=== PATIENT | male | born 1955 | race Caucasian/White ===

== ENCOUNTER 2021-08-05 09:01 | Emergency (ER) | payer MEDICAID, SELFPAY ==
[2021-08-05] VITALS (13 sets, daily range): BP systolic 119–154; BP diastolic 55–90; PULSE 68–88; RESP 14–20; TEMP 36.3–36.9; O2SAT 90–97; BMI 19.6
--- NOTE | 2021-08-05 09:16 | EDS_ITS ---
HPI <Dr. 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 Patient with abnormal behavior at [facility]. Patient apparently try to break into someone's home last evening and he was picked up by [place] police and was arrested. Ultimately was discharged from skilled nursing. Patient then was picked up by [place] police and taken to an [facility] after helping him take out some money. Patient brought in by police today for bizarre behavior and concern for his wellbeing. Patient is a very poor historian and has flight of ideas. Patient paranoid. Denies suicidal or homicidal ideation. Patient does admit to hallucinations but will not say what he sees. Patient does not know what medications he takes. [facility] <Dr. Estefany Feliciano, DO - Last Filed: 08/05/21 15:39> [facility] Medical History Anxiety COPD (chronic obstructive pulmonary disease) Depression Smoker Home Medications etodolac 300 mg PO TIDCM #30 capsule 02/18/14 [Rx Last Taken Unknown] Allergy/AdvReac Type Severity Reaction Status Date / Time acetaminophen [From Vicodin] AdvReac Nausea Verified 08/05/21 09:05 hydrocodone bitartrate AdvReac Nausea Verified 08/05/21 09:05 [From Vicodin] Surgical History (Updated 08/05/21 @ 09:39 by Yen Sinclair) Stented coronary artery Social History Smoking Status: Current every day smoker tobacco type: cigarettes ROS <Dr. Estefany Feliciano, DO - Last Filed: 08/05/21 15:39> ROS ED Constitutional Constitutional ED: Reports systems reviewed and no addt'l complaints, except as documented; Denies body ache(s), change in weight or chills Eyes Eyes: Denies acute decrease in peripheral vision, change in vision, double vision or loss of vision ENT ENT ED: Reports none; Denies ear pain, lip swelling, loss taste/smell, neck pain, otalgia or sore throat Cardiovascular Cardiovascular: Reports none; Denies abdominal pain, chest pain with activity, leg edema, lightheadedness, palpitations, rapid heart rate or syncope Respiratory/Chest Respiratory/Chest: Reports none; Denies change in mental status, dry cough, dyspnea, hemoptysis, shortness of breath at rest or shortness of breath with exertion Gastrointestinal Gastrointestinal: Reports none; Denies abdominal pain, change in stool character, diarrhea, hematemesis, hematochezia, melena, rectal bleeding or vomiting Genitourinary Genitourinary ED: Reports none; Denies abdominal discomfort, anuria, dysuria, genital pain or polyuria Musculoskeletal Musculoskeletal: Reports none; Denies arthralgias, back pain, difficulty walking, extremity pain, muscle weakness or myalgias Integumentary Reports none; Denies abscess or rash Neurologic Neurologic: Reports none; Denies abnormal gait, confusion, focal weakness, frequent falls, headache(s), loss of vision, numbness, paresthesias, radicular pain, vertigo or weakness Psychiatric Psychiatric: Reports systems reviewed and no addt'l complaints, except as documented, none and other Details: Abnormal behavior, hallucinations, paranoia ; Denies behavioral changes, confusion, difficulty concentrating, hallucinations, suicidal ideation, tactile hallucinations or visual hallucinations Endocrine Endocrinology: Denies none, cold intolerance, excessive sweating, fatigue or heat intolerance Hematologic/Lymphatic Hematologic/Lymphatic: Reports none; Denies anemia, easy bleeding or easy bruising Allergic/Immunologic Allergic/Immunologic ED: Denies as per HPI, none, lip swelling, mouth swelling, throat swelling, tongue swelling or hives EXAM <Dr. Estefany Feliciano, DO - Last Filed: 08/05/21 15:39> Physical Exam Const Vital Signs: 08/05/21 09:02 08/05/21 09:32 08/05/21 10:18 Temperature 98.4 F Temperature Source Temporal Pulse Rate 84 68 Respiratory Rate 16 14 Blood Pressure 154/85 H 139/67 H Blood Pressure Mean 108 91 Pulse Ox 97 97 97 Oxygen Delivery Method Room Air Room Air Room Air 08/05/21 11:00 08/05/21 12:00 08/05/21 14:00 Temperature Temperature Source Pulse Rate 75 76 Respiratory Rate 16 Blood Pressure 119/75 152/90 H 149/85 H Blood Pressure Mean 89 110 106 Pulse Ox 93 93 94 Oxygen Delivery Method Room Air Room Air Room Air 08/05/21 15:00 08/05/21 16:00 08/05/21 17:00 Temperature Temperature Source Pulse Rate Respiratory Rate 20 H Blood Pressure 146/73 H 127/80 H 147/69 H Blood Pressure Mean 97 95 95 Pulse Ox 90 93 96 Oxygen Delivery Method Room Air Room Air Room Air 08/05/21 18:00 08/05/21 20:13 08/05/21 21:30 Temperature 97.4 F L Temperature Source Temporal Pulse Rate 88 Respiratory Rate 17 17 Blood Pressure 134/55 H 120/74 Blood Pressure Mean 81 89 Pulse Ox 93 96 Oxygen Delivery Method Room Air Room Air 08/05/21 22:38 Temperature Temperature Source Pulse Rate Respiratory Rate 17 Blood Pressure Blood Pressure Mean Pulse Ox Oxygen Delivery Method Positive well nourished and well developed General Appearance ED: well developed and NAD HEENT Reports TM's clear and moist mucous membranes normocephalic and atraumatic; Negative for trauma or tenderness Tympanic Membrane ED: Yes TM's clear Eyes PERRL and EOMs intact bilaterally General Eye ED: Negative for pale conjunctiva or scleral icterus Neck no lymphadenopathy, supple and no JVD General: Negative for tenderness Chest Wall inspection of chest normal and palpation of chest normal Chest: Negative for tenderness Resp normal respiratory effort and clear to auscultation bilaterally Effort and Inspection: Negative for respiratory distress or pain with movement Auscultation: Negative for rhonchi, wheezes or diminished lung sounds Cardio regular rate, regular rhythm, S1 normal heart sound, S2 normal heart sound and no murmurs Peripheral Pulses: pulses 2+ throughout GI normal to inspection, nondistended, normoactive bowel sounds, soft to palpation, non-tender, non-distended and no masses Back/Spine no CVA tenderness and no thoracic nor lumbar tenderness Extremity normal to inspection General Extremety ED: Negative for edema General Extremity: Negative for edema Neuro oriented x3, CN's II-XII intact bilaterally, no sensory deficits noted and gait normal Sensorium / Orientation: awake, alert, oriented to person, oriented to place and oriented to time Motor Exam: strength 5/5 throughout and strength abnormal Psych mental status grossly normal Activity / Motor Behavior: psychomotor agitation and disorganized Speech: incoherent and pressured Mood & Affect: labile affect Thought Process: loose associations, tangential and racing thoughts Thought Content: delusion(s) and hallucination(s) Skin no rashes or lesions noted and no wounds <Dr. Amandeep Lyle MD - Last Filed: 08/06/21 00:02> Physical Exam Const Vital Signs: 08/05/21 09:02 08/05/21 09:32 08/05/21 10:18 Temperature 98.4 F Temperature Source Temporal Pulse Rate 84 68 Respiratory Rate 16 14 Blood Pressure 154/85 H 139/67 H Blood Pressure Mean 108 91 Pulse Ox 97 97 97 Oxygen Delivery Method Room Air Room Air Room Air 08/05/21 11:00 08/05/21 12:00 08/05/21 14:00 Temperature Temperature Source Pulse Rate 75 76 Respiratory Rate 16 Blood Pressure 119/75 152/90 H 149/85 H Blood Pressure Mean 89 110 106 Pulse Ox 93 93 94 Oxygen Delivery Method Room Air Room Air Room Air 08/05/21 15:00 08/05/21 16:00 08/05/21 17:00 Temperature Temperature Source Pulse Rate Respiratory Rate 20 H Blood Pressure 146/73 H 127/80 H 147/69 H Blood Pressure Mean 97 95 95 Pulse Ox 90 93 96 Oxygen Delivery Method Room Air Room Air Room Air 08/05/21 18:00 08/05/21 20:13 08/05/21 21:30 Temperature 97.4 F L Temperature Source Temporal Pulse Rate 88 Respiratory Rate 17 17 Blood Pressure 134/55 H 120/74 Blood Pressure Mean 81 89 Pulse Ox 93 96 Oxygen Delivery Method Room Air Room Air 08/05/21 22:38 Temperature Temperature Source Pulse Rate Respiratory Rate 17 Blood Pressure Blood Pressure Mean Pulse Ox Oxygen Delivery Method MDM <Dr. Estefany Feliciano DO - Last Filed: 08/05/21 15:39> MDM MDM Narrative Medical decision making narrative: Patient will be evaluated by crisis. Care of patient turned over to evening physician awaiting evaluation by crisis and final disposition. Lab Data Attestation: I reviewed the patient's lab results. Labs: Laboratory Results - last 24 hr 08/05/21 08/05/21 08/05/21 09:21 09:35 09:35 WBC 9.0 RBC 4.37 L Hgb 13.0 Hct 39.1 L MCV 89.5 MCH 29.7 MCHC 33.2 RDW Std Deviation 44.9 H RDW Coeff of Fanta 13.6 Plt Count 227 MPV 9.9 Immature Gran % (Auto) 0.200 Neut % (Auto) 82.2 H Lymph % (Auto) 8.5 L Carl[place] % (Auto) 7.9 Eos % (Auto) 0.9 Baso % (Auto) 0.3 Absolute Neuts (auto) 7.4 Absolute Lymphs (auto) 0.77 L Nucleated RBC % 0 Sodium 142 Potassium 3.7 Chloride 107 Carbon Dioxide 27.0 Anion Gap 8 BUN 34 H Creatinine 1.01 Estim Creat Clear Calc 57.22 Est GFR (MDRD) Af Amer 95 Est GFR (MDRD) Non-Af 78 BUN/Creatinine Ratio 33.7 H Glucose 104 Calcium 9.4 Urine Opiates Screen NEGATIVE Urine Methadone Screen NEGATIVE Ur Barbiturates Screen NEGATIVE Ur Phencyclidine Scrn NEGATIVE Ur Amphetamines Screen POSITIVE H U Methamphetamin-MDMA POSITIVE H U Benzodiazepines Scrn NEGATIVE Urine Cocaine Screen NEGATIVE U Cannabinoids Screen NEGATIVE Ur Drug Screen Comment Ethyl Alcohol 08/05/21 09:35 WBC RBC Hgb Hct MCV MCH MCHC RDW Std Deviation RDW Coeff of Fanta Plt Count MPV Immature Gran % (Auto) Neut % (Auto) Lymph % (Auto) Carlisle % (Auto) Eos % (Auto) Baso % (Auto) Absolute Neuts (auto) Absolute Lymphs (auto) Nucleated RBC % Sodium Potassium Chloride Carbon Dioxide Anion Gap BUN Creatinine Estim Creat Clear Calc Est GFR (MDRD) Af Amer Est GFR (MDRD) Non-Af BUN/Creatinine Ratio Glucose Calcium Urine Opiates Screen Urine Methadone Screen Ur Barbiturates Screen Ur Phencyclidine Scrn Ur Amphetamines Screen U Methamphetamin-MDMA U Benzodiazepines Scrn Urine Cocaine Screen U Cannabinoids Screen Ur Drug Screen Comment Ethyl Alcohol < 3.0 <Dr. Amandeep Lyle MD - Last Filed: 08/06/21 00:02> MDM MDM Narrative Medical decision making narrative: Patient has been seen by the licensed surveyor from the crisis center. She is working on disposition to psychiatric facility. As of midAugust 06 disposition is not known. Lab Data Labs: Laboratory Results - last 24 hr 08/05/21 08/05/21 08/05/21 09:21 09:35 09:35 WBC 9.0 RBC 4.37 L Hgb 13.0 Hct 39.1 L MCV 89.5 MCH 29.7 MCHC 33.2 RDW Std Deviation 44.9 H RDW Coeff of Fanta 13.6 Plt Count 227 MPV 9.9 Immature Gran % (Auto) 0.200 Neut % (Auto) 82.2 H Lymph % (Auto) 8.5 L [place] % (Auto) 7.9 Eos % (Auto) 0.9 Baso % (Auto) 0.3 Absolute Neuts (auto) 7.4 Absolute Lymphs (auto) 0.77 L Nucleated RBC % 0 Sodium 142 Potassium 3.7 Chloride 107 Carbon Dioxide 27.0 Anion Gap 8 BUN 34 H Creatinine 1.01 Estim Creat Clear Calc 57.22 Est GFR (MDRD) Af Amer 95 Est GFR (MDRD) Non-Af 78 BUN/Creatinine Ratio 33.7 H Glucose 104 Calcium 9.4 Urine Opiates Screen NEGATIVE Urine Methadone Screen NEGATIVE Ur Barbiturates Screen NEGATIVE Ur Phencyclidine Scrn NEGATIVE Ur Amphetamines Screen POSITIVE H U Methamphetamin-MDMA POSITIVE H U Benzodiazepines Scrn NEGATIVE Urine Cocaine Screen NEGATIVE U Cannabinoids Screen NEGATIVE Ur Drug Screen Comment Ethyl Alcohol 08/05/21 09:35 WBC RBC Hgb Hct MCV MCH MCHC RDW Std Deviation RDW Coeff of Fanta Plt Count MPV Immature Gran % (Auto) Neut % (Auto) Lymph % (Auto) Carl[place] % (Auto) Eos % (Auto) Baso % (Auto) Absolute Neuts (auto) Absolute Lymphs (auto) Nucleated RBC % Sodium Potassium Chloride Carbon Dioxide Anion Gap BUN Creatinine Estim Creat Clear Calc Est GFR (MDRD) Af Amer Est GFR (MDRD) Non-Af BUN/Creatinine Ratio Glucose Calcium Urine Opiates Screen Urine Methadone Screen Ur Barbiturates Screen Ur Phencyclidine Scrn Ur Amphetamines Screen U Methamphetamin-MDMA U Benzodiazepines Scrn Urine Cocaine Screen U Cannabinoids Screen Ur Drug Screen Comment Ethyl Alcohol < 3.0 Discharge Plan Triage Chief Complaint: Mental Health ED Provider: Estefany Feliciano Dx/Rx/DC Orders Clinical Impression: Psychosis, Acute paranoia Prescriptions: No Action etodolac 300 MG capsule 300 mg PO TIDCM Qty: 30 RF: 0 Primary Care Provider: Care Physician,No Primary Referrals: Care Physician,No Primary [Primary Care Provider] -
[2021-08-05] MEDS: Haloperidol Lactate 5 MG/ML Vial IM (09:31)
[2021-08-05] MEDS: LORazepam 2 MG/ML Syringe IM (09:31)
[2021-08-05 09:46] LABS: Absolute Lymphocyte Count 0.77 X10^3/uL (0.83-4.51); Absolute Neutrophil Count 7.4 X10^3/uL (2.0-7.7); Basophil# 0.03 X10^3/uL; Basophil% 0.3 % (0-1); Eosinophil# 0.08 X10^3/uL; Eosinophils% 0.9 % (0-5); Hematocrit 39.1 % (40-54); Lymphocyte # 0.77 X10^3/ul (0.83-4.51); Lymphocyte % 8.5 % (19-41); Mean Corp Hgb Conc 33.2 g/dL (32-36); Mean Corpuscular Hgb 29.7 pg (27.0-32.0); Mean Corpuscular Volume 89.5 fL (80-94); Mean Platelet Vol. 9.9 fl (6.2-12.0); Monocyte# 0.71 X10^3/uL; Monocyte% 7.9 % (0-10); NRBC Flagged by Analyzer 0 % (0-5); Neutrophil # 7.43 X10^3/uL (2.7-7.7); Neutrophil % 82.2 % (47-70); Platelet Count 227 K/mm3 (150-450); RBC Distribution Width CV 13.6 % (11.6-14.6); RBC Distribution Width SD 44.9 fl (35.1-43.9); Red Blood Count 4.37 M/mm3 (4.6-6.2)
[2021-08-05 09:58] LABS: Anion Gap 8 (5-15); BUN 34 mg/dL (7-18); BUN/Creat Ratio 33.7 RATIO (10-20); Calcium,Total 9.4 mg/dL (8.5-10.1); Chloride 107 mmol/L (98-107); Creatinine, Serum 1.01 mg/dL (0.70-1.30); EST Glomerular Filtration Rate 78 mL/min (>60); Est Glom Filt Rate - Afr Amer 95 mL/min (>60); Estimated Creatinine Clearance 57.22 ml/min; Glucose 104 mg/dL (74-106); Potassium 3.7 mmol/L (3.5-5.1); Sodium Level 142 mmol/L (136-145)
[2021-08-05 10:00] LABS: Amphetamine Urine VISTA POSITIVE (<1000 ng/mL); Barbiturate Urine VISTA NEGATIVE (< 200 ng/mL); Benzodiazepine Urine VISTA NEGATIVE (< 200 ng/mL); Cocaine Urine VISTA NEGATIVE (< 300 ng/mL); Ecstacy Urine VISTA POSITIVE (< 500 ng/mL); Methadone Urine VISTA NEGATIVE (< 300 ng/mL); PCP Urine VISTA NEGATIVE (< 25 ng/mL); THC Urine VISTA NEGATIVE (< 50 ng/mL); Vista UDS pH Range 5
[2021-08-05 10:05] LABS: Alcohol, Blood (Medical)-Serum < 3.0 mg/dL
--- NOTE | 2021-08-05 11:11 | NURSING ---
FAXED EVERYTHING TO [facility]
[2021-08-06 01:00] VITALS: BP 127/58; PULSE 74; RESP 16; TEMP 36.5; O2SAT 92
[2021-08-06 05:19] VITALS: BP 134/72; PULSE 76; RESP 17; O2SAT 98
--- NOTE | 2021-08-06 05:21 | ED.RN ---
CALLED THE [facility] MULTIPLE TIMES FOR A UPDATE, BEFORE AURELIO LEFT SHE SAID THAT THEY WAS PENDING AT [facility].. I HAVE TRIED CALLING [facility] AT 1:54 AM, 3:28AM AND ALSO 5:17AM FOR A UPDATE. THE FIRST TIME I CALLED THEY SAID WE WILL PAGE HER, THE SECOND TIME I CALLED [facility] WITH A PATIENT, THIRD TIME I CALLED THEY WILL PAGE HER. CHARGE NURSE IS AWARE.
[2021-08-06 05:56] VITALS: BP 129/62; PULSE 74; RESP 16; TEMP 36.8; O2SAT 96
== END 2021-08-06 07:09 ==
PROVIDERS: Emergency Provider Emergency Medicine
DX: F22 Delusional disorders (principal); F29 Unspecified psychosis not due to a substance or known physiological condition; F17.210 Nicotine dependence, cigarettes, uncomplicated
CPT/HCPCS: 36415; 80048; 80307; 82077; 85025; 87426; 96372; 99285

== ENCOUNTER 2021-10-15 12:27 | Emergency (ER) | payer MEDICAID, SELFPAY ==
[2021-10-15 12:41] VITALS: BP 115/67; PULSE 88; RESP 16; TEMP 37.6; O2SAT 96
[2021-10-15 13:36] LABS: Mucous, Urine 0 SEEN /hpf (<or=2+); Squamous Epithelial Cells - UA 0 SEEN /hpf (0-5)
[2021-10-15 13:46] LABS: Color, Urine Yellow (Yellow); Glucose, Dipstick Normal (Normal); Ketone-Dipstick 15 mg/dl (Negative); Leukocyte Esterase-Dipstick 100 /ul (Negative); Nitrite-Dipstick Positive (Negative); Occult Blood-Urine 150 /ul (Negative); Protein-Dipstick 30 mg/dl (Negative); Urine Bilirubin Dipstick Negative (Negative); Urine Clarity Clear (Clear); Urine Urobilinogen 8 mg/dl (Normal)
--- NOTE | 2021-10-15 13:49 | ED.RN ---
pt reports he is going outside awhile. pt informed that he has to be present in waiting room when called to be taken back to a room.
[2021-10-15 14:19] LABS: Bacteria 1+ /hpf (None Seen); Red Blood Cells-Urine 0-5 SEEN /hpf (0-5); White Blood Cells 5-10 SEEN /hpf (0-5)
--- NOTE | 2021-10-15 15:34 | ED.RN ---
PT CALLED TO GO BACK FROM [facility]. PT NOT PRESENT IN WAITING ROOM. PT LWBS AT 1530.
== END 2021-10-15 15:34 | disposition left against medical advice (07) ==
LOC: ED 15:37
DX: Z53.21 Procedure and treatment not carried out due to patient leaving prior to being seen by health care provider (principal)
CPT/HCPCS: 81001

== ENCOUNTER → 2021-10-24 | Outpatient (CLI) | payer MEDICAID, SELFPAY ==
[2021-10-24 15:56] LABS: Absolute Lymphocyte Count 1.11 X10^3/uL (0.83-4.51); Absolute Neutrophil Count 5.7 X10^3/uL (2.0-7.7); Basophil# 0.02 X10^3/uL; Basophil% 0.3 % (0-1); Eosinophil# 0.27 X10^3/uL; Eosinophils% 3.5 % (0-5); Hematocrit 37.3 % (40-54); Hemoglobin 11.8 g/dL (13.0-16.5); Lymphocyte # 1.11 X10^3/ul (0.83-4.51); Lymphocyte % 14.6 % (19-41); Mean Corp Hgb Conc 31.6 g/dL (32-36); Mean Corpuscular Hgb 29.6 pg (27.0-32.0); Mean Corpuscular Volume 93.5 fL (80-94); Mean Platelet Vol. 9.8 fl (6.2-12.0); Monocyte# 0.39 X10^3/uL; Monocyte% 5.1 % (0-10); NRBC Flagged by Analyzer 0 % (0-5); Neutrophil # 5.68 X10^3/uL (2.7-7.7); Neutrophil % 74.5 % (47-70); Platelet Count 364 K/mm3 (150-450); RBC Distribution Width CV 13.4 % (11.6-14.6); RBC Distribution Width SD 45.9 fl (35.1-43.9); Red Blood Count 3.99 M/mm3 (4.6-6.2); White Blood Count 7.6 K/mm3 (4.4-11.0)
== END | disposition home or self-care (01) ==
LOC: LABSPEC 15:20
DX: A41.51 Sepsis due to Escherichia coli [E. coli] (principal)
CPT/HCPCS: 85025

== ENCOUNTER → 2021-10-30 14:34 | Outpatient (CLI) | payer MEDICAID, SELFPAY ==
[2021-10-30 15:33] LABS: Absolute Lymphocyte Count 1.13 X10^3/uL (0.83-4.51); Absolute Neutrophil Count 4.6 X10^3/uL (2.0-7.7); Basophil# 0.04 X10^3/uL; Basophil% 0.6 % (0-1); Eosinophil# 0.25 X10^3/uL; Eosinophils% 3.9 % (0-5); Hematocrit 38.8 % (40-54); Hemoglobin 12.7 g/dL (13.0-16.5); Lymphocyte # 1.13 X10^3/ul (0.83-4.51); Lymphocyte % 17.7 % (19-41); Mean Corp Hgb Conc 32.7 g/dL (32-36); Mean Corpuscular Hgb 29.8 pg (27.0-32.0); Mean Corpuscular Volume 91.1 fL (80-94); Mean Platelet Vol. 9.9 fl (6.2-12.0); Monocyte# 0.37 X10^3/uL; Monocyte% 5.8 % (0-10); NRBC Flagged by Analyzer 0 % (0-5); Neutrophil # 4.58 X10^3/uL (2.7-7.7); Neutrophil % 71.7 % (47-70); Platelet Count 372 K/mm3 (150-450); RBC Distribution Width CV 13.4 % (11.6-14.6); RBC Distribution Width SD 45.1 fl (35.1-43.9); Red Blood Count 4.26 M/mm3 (4.6-6.2); White Blood Count 6.4 K/mm3 (4.4-11.0)
[2021-10-30 15:45] LABS: ALB/GLOB Ratio 1.1 RATIO (0.9-2.4); AST(SGOT) 19 U/L (15-37); Alanine Aminotransfer ALT/SGPT 22 U/L (16-61); Albumin, Serum 3.4 g/dL (3.2-5.0); Alkaline Phosphatase 116 U/L (45-117); Anion Gap 4 (5-15); BUN 12 mg/dL (7-18); BUN/Creat Ratio 13.5 RATIO (10-20); Calcium,Total 9.2 mg/dL (8.5-10.1); Chloride 110 mmol/L (98-107); Creatinine, Serum 0.89 mg/dL (0.70-1.30); EST Glomerular Filtration Rate 91 mL/min (>60); Est Glom Filt Rate - Afr Amer 110 mL/min (>60); Globulin 3.1 g/dL (2.2-4.2); Glucose 77 mg/dL (74-106); Potassium 4.2 mmol/L (3.5-5.1); Protein, Total 6.5 g/dL (6.4-8.2); Sodium Level 143 mmol/L (136-145)
== END ==
DX: R78.81 Bacteremia (principal)
CPT/HCPCS: 80053; 85025

== ENCOUNTER 2021-11-13 14:15 | Outpatient (CLI) | payer MEDICAID, SELFPAY ==
[2021-11-13 15:57] LABS: Absolute Lymphocyte Count 1.03 X10^3/uL (0.83-4.51); Absolute Neutrophil Count 3.3 X10^3/uL (2.0-7.7); Basophil# 0.02 X10^3/uL; Basophil% 0.4 % (0-1); Eosinophil# 0.42 X10^3/uL; Eosinophils% 8.2 % (0-5); Hematocrit 38.8 % (40-54); Hemoglobin 12.9 g/dL (13.0-16.5); Lymphocyte # 1.03 X10^3/ul (0.83-4.51); Lymphocyte % 20.1 % (19-41); Mean Corp Hgb Conc 33.2 g/dL (32-36); Mean Corpuscular Hgb 29.6 pg (27.0-32.0); Mean Platelet Vol. 10.9 fl (6.2-12.0); Monocyte# 0.39 X10^3/uL; Monocyte% 7.6 % (0-10); NRBC Flagged by Analyzer 0 % (0-5); Neutrophil # 3.26 X10^3/uL (2.7-7.7); Neutrophil % 63.5 % (47-70); Platelet Count 158 K/mm3 (150-450); RBC Distribution Width CV 13.2 % (11.6-14.6); RBC Distribution Width SD 43.6 fl (35.1-43.9); Red Blood Count 4.36 M/mm3 (4.6-6.2); White Blood Count 5.1 K/mm3 (4.4-11.0)
[2021-11-13 16:15] LABS: ALB/GLOB Ratio 1.2 RATIO (0.9-2.4); AST(SGOT) 20 U/L (15-37); Alanine Aminotransfer ALT/SGPT 23 U/L (16-61); Albumin, Serum 3.6 g/dL (3.2-5.0); Alkaline Phosphatase 112 U/L (45-117); Anion Gap 6 (5-15); BUN 12 mg/dL (7-18); BUN/Creat Ratio 14.1 RATIO (10-20); Calcium,Total 8.9 mg/dL (8.5-10.1); Chloride 108 mmol/L (98-107); Creatinine, Serum 0.85 mg/dL (0.70-1.30); EST Glomerular Filtration Rate 96 mL/min (>60); Est Glom Filt Rate - Afr Amer 116 mL/min (>60); Glucose 82 mg/dL (74-106); Protein, Total 6.6 g/dL (6.4-8.2); Sodium Level 142 mmol/L (136-145)
== END 2021-11-13 23:59 | disposition short-term general hospital (02) ==
LOC: LABSPEC 14:16
DX: A41.51 Sepsis due to Escherichia coli [E. coli] (principal)
CPT/HCPCS: 80053; 85025

== ENCOUNTER 2021-12-16 22:50 | Emergency (ER) | payer MEDICAID, SELFPAY ==
[2021-12-16 22:51] VITALS: BP 168/117; PULSE 55; RESP 16; TEMP 36.7; O2SAT 95; BMI 21.0
--- NOTE | 2021-12-16 23:15 | CT_ITS ---
EXAMINATION : Head CT w/out contrast HISTORY : dizziness COMPARISON : None. TECHNIQUE : Multiple contiguous axial images were obtained from the skull base to the vertex without intravenous contrast. A radiation dose optimization technique was used for this scan. FINDINGS : There is no evidence for acute intracranial hemorrhage, mass effect, or midline shift. There is no extra-axial fluid collection. There are periventricular white matter changes consistent with chronic microvascular ischemic disease. There is sulcal widening and ventricular enlargement consistent with cerebral atrophy. There is normal singletary-white differentiation, without CT evidence of acute ischemia or infarct. The skull base and calvarium are unremarkable. The orbits are unremarkable. The paranasal sinuses are clear. The mastoid air cells are well-aerated. The soft tissues are unremarkable. CT/Brain/Head without Contrast IMPRESSION: No acute intracranial abnormality. Chronic involutional and ischemic changes of the brain. Electronically Signed: Young Archer MD at 23:48 EST ,
--- NOTE | 2021-12-16 23:15 | EKG12_ITS ---
Test Reason : ABD PAIN Blood Pressure : / mmHG Vent. Rate : 054 BPM Atrial Rate : 054 BPM P-R Int : 154 ms QRS Dur : 104 ms QT Int : 502 ms P-R-T Axes : 062 038 -01 degrees QTc Int : 476 ms Sinus bradycardia Otherwise normal ECG Confirmed by IZA BOSTON, ANNALISE ([id number]), editorial intern KERRI DUNHAM ([id number]) on 12/19/2021 11:39:33 AM Referred By: MARIA VICTORIA Confirmed By:ANNALISE COUCH MD
[2021-12-16 23:34] LABS: Absolute Lymphocyte Count 1.37 X10^3/uL (0.83-4.51); Absolute Neutrophil Count 3.4 X10^3/uL (2.0-7.7); Basophil# 0.04 X10^3/uL; Basophil% 0.7 % (0-1); Eosinophil# 0.54 X10^3/uL; Eosinophils% 9.1 % (0-5); Hematocrit 41.7 % (40-54); Hemoglobin 14.3 g/dL (13.0-16.5); Lymphocyte # 1.37 X10^3/ul (0.83-4.51); Lymphocyte % 23.1 % (19-41); Mean Corp Hgb Conc 34.3 g/dL (32-36); Mean Corpuscular Hgb 30.6 pg (27.0-32.0); Mean Corpuscular Volume 89.1 fL (80-94); Mean Platelet Vol. 10.6 fl (6.2-12.0); Monocyte# 0.53 X10^3/uL; Monocyte% 8.9 % (0-10); NRBC Flagged by Analyzer 0 % (0-5); Neutrophil # 3.44 X10^3/uL (2.7-7.7); Neutrophil % 57.9 % (47-70); Platelet Count 180 K/mm3 (150-450); RBC Distribution Width CV 13.2 % (11.6-14.6); RBC Distribution Width SD 43.3 fl (35.1-43.9); Red Blood Count 4.68 M/mm3 (4.6-6.2); White Blood Count 5.9 K/mm3 (4.4-11.0)
[2021-12-16 23:41] LABS: Anion Gap 4 (5-15); BUN 17 mg/dL (7-18); BUN/Creat Ratio 18.5 RATIO (10-20); Calcium,Total 8.7 mg/dL (8.5-10.1); Chloride 112 mmol/L (98-107); Creatinine, Serum 0.92 mg/dL (0.70-1.30); EST Glomerular Filtration Rate 87 mL/min (>60); Est Glom Filt Rate - Afr Amer 106 mL/min (>60); Estimated Creatinine Clearance 69.13 ml/min; Glucose 91 mg/dL (74-106); Potassium 3.8 mmol/L (3.5-5.1); Sodium Level 141 mmol/L (136-145); Troponin-I HS 10 pg/mL (3.0-78.0)
[2021-12-16 23:58] VITALS: BP 161/86; BP 167/96; BP 175/90; PULSE 51; PULSE 58; PULSE 59
--- NOTE | 2021-12-17 00:41 | EX.ED.DYSGE1 ---
HPI History of Present Illness Chief Complaint: Hypertension Narrative Narrative: Patient is a 66-year-old male with history of hypertension who states that he has been having his blood pressure checked at home at the recommendation of his PCP to decide if there is any other medications that need prescribed to help control his blood pressure. Patient states that this evening he was sitting down watching TV for a few hours when he stood up to use the restroom and then felt lightheaded and dizzy. Secondary to that event they checked his blood pressure and it was elevated and secondary to this he comes in for evaluation. PFSH PFSH Medical History Anxiety COPD (chronic obstructive pulmonary disease) Depression Smoker Home Medications etodolac 300 mg PO TIDCM #30 capsule 02/18/14 [Rx Last Taken Unknown] Allergy/AdvReac Type Severity Reaction Status Date / Time No Known Allergies Allergy Verified 12/16/21 22:56 Surgical History (Updated 08/05/21 @ 09:39 by Yen Sinclair) Stented coronary artery Social History Smoking Status: Current every day smoker tobacco type: cigarettes ROS ROS ED Constitutional Constitutional ED: Denies chills or fever(s) ENT ENT ED: Denies sore throat Cardiovascular Cardiovascular: Denies chest pain Respiratory/Chest Respiratory/Chest: Denies cough or dyspnea Gastrointestinal Gastrointestinal: Denies abdominal pain, diarrhea, nausea or vomiting Genitourinary Genitourinary ED: Denies dysuria Musculoskeletal Musculoskeletal: Denies myalgias Integumentary Denies rash Neurologic Neurologic: Reports other Details: Positive dizziness ; Denies headache(s) Hematologic/Lymphatic Hematologic/Lymphatic: Denies easy bleeding or easy bruising EXAM Physical Exam Const Vital Signs: 12/16/21 22:51 12/16/21 22:55 12/16/21 23:58 Temperature 98.1 F Temperature Source Oral Pulse Rate 55 L Pulse Rate [Lying] 51 L Pulse Rate [Sitting] 59 L Pulse Rate [Standing] 58 L Respiratory Rate 16 Respiratory Effort Normal Non-Labored Respiratory Pattern Normal Blood Pressure 168/117 H Blood Pressure [Lying] 161/86 H Blood Pressure [Sitting] 175/90 H Blood Pressure [Standing] 167/96 H Blood Pressure Mean 134 Blood Pressure Mean [Lying] 111 Blood Pressure Mean [Sitting] 118 Blood Pressure Mean [Standing] 119 Pulse Ox 95 Oxygen Delivery Method Room Air Positive well nourished and well developed General Appearance ED: well developed HEENT Reports dry mucous membranes Mouth ED: Yes dry mucous membranes Mouth: dry mucous membranes Eyes PERRL and EOMs intact bilaterally Neck full ROM and supple Resp normal respiratory effort Resp Narrative: Breath sounds are diminished throughout with diffuse expiratory wheeze and slight rhonchi in the bilateral bases but no signs of distress. This is consistent with his history of smoking Cardio regular rhythm Cardio Narrative: Bradycardic rate with regular rhythm. Radial pulses are +2-4 bilaterally are equal and symmetric GI non-tender and non-distended GI Narrative: No voluntary guarding or rigidity no pulsatile mass Auscultation: normoactive bowel sounds Palpation: soft Extremity normal to inspection Extremity Narrative: No asymmetric edema no pitting edema negative Homans' sign bilaterally Neuro oriented x3, CN's II-XII intact bilaterally, moves all extremities, no focal motor deficits and no sensory deficits noted Sensorium / Orientation: alert Psych mental status grossly normal Skin no rashes or lesions noted MDM MDM MDM Narrative Medical decision making narrative: Patient presented to the ER hypertensive but otherwise with stable vitals and no focal neurologic deficits. His history of watching TV for hours then getting dizzy when he stood up to use the bathroom is most consistent with orthostasis. Orthostatic vitals were obtained which were technically negative. Because of the dizziness and the hypertension did elect to perform a head CT as well as basic work-up. Head CT revealed age-related changes but no acute findings and lab work revealed no clinically significant changes. Without medications the patient's blood pressure spontaneously improved. On reevaluation he is resting comfortably and remains with a normal neurologic exam. Therefore at this time as the most likely reason for his short bout of dizziness is orthostasis but he is not having acute kidney injury or severe dehydration I do not feel there is need for IV hydration and as he has no signs of endorgan damage from the hypertension he is safe for discharge. Lab Data Attestation: I reviewed the patient's lab results. Labs: Laboratory Results - last 24 hr 12/16/21 12/16/21 22:29 22:29 WBC 5.9 RBC 4.68 Hgb 14.3 Hct 41.7 MCV 89.1 MCH 30.6 MCHC 34.3 RDW Std Deviation 43.3 RDW Coeff of Fanta 13.2 Plt Count 180 MPV 10.6 Immature Gran % (Auto) 0.300 Neut % (Auto) 57.9 Lymph % (Auto) 23.1 [place] % (Auto) 8.9 Eos % (Auto) 9.1 H Baso % (Auto) 0.7 Absolute Neuts (auto) 3.4 Absolute Lymphs (auto) 1.37 Nucleated RBC % 0 Sodium 141 Potassium 3.8 Chloride 112 H Carbon Dioxide 25.0 Anion Gap 4 L BUN 17 Creatinine 0.92 Estim Creat Clear Calc 69.13 Est GFR (MDRD) Af Amer 106 Est GFR (MDRD) Non-Af 87 BUN/Creatinine Ratio 18.5 Glucose 91 Calcium 8.7 Troponin I High Sens 10 Radiography Diagnostic Testing: Clinical Impression(s) from Imaging Studies Brain CT 12/16/21 23:15 IMPRESSION: No acute intracranial abnormality. Chronic involutional and ischemic changes of the brain. Electronically Signed: Young Archer MD at 23:48 EST Reading Location ID and State: [facility] / [place] Tel , Service support , Discharge Plan Triage Chief Complaint: Hypertension ED Provider: Reed Ding Dx/Rx/DC Orders Clinical Impression: Accelerated hypertension, Orthostatic dizziness Instructions: Dizziness Fainting Poss Causes, Hypertension Dc Prescriptions: No Action etodolac 300 MG capsule 300 mg PO TIDCM Qty: 30 RF: 0 Primary Care Provider: Xavier Berger Referrals: Xavier Berger DO [Primary Care Provider] - Disposition Disposition: Home, Self Care
[2021-12-17 00:56] VITALS: BP 159/84; PULSE 59; RESP 19; O2SAT 99
== END 2021-12-17 00:57 | disposition home or self-care (01) ==
PROVIDERS: Emergency Provider Emergency Medicine; PCP Family Medicine; Visit Provider Emergency Medicine
DX: I10 Essential (primary) hypertension (principal); J44.9 Chronic obstructive pulmonary disease, unspecified; I95.1 Orthostatic hypotension; F17.210 Nicotine dependence, cigarettes, uncomplicated
CPT/HCPCS: 70450; 80048; 84484; 85025; 93005; 99285; A4216

== ENCOUNTER 2022-01-07 15:05 | Emergency (ER) | payer MEDICAID, SELFPAY ==
[2022-01-07 15:05] VITALS: BP 160/99; PULSE 119; RESP 18; TEMP 36.1; O2SAT 98
--- NOTE | 2022-01-07 15:41 | ED.RN ---
PATIENT WAS GIVEN DOG BITE FORM TO FILL OUT. PATIENT RETURNS TO TRIAGE DESK AND STATES HE NEEDS A NEW FORM. ONE THAT STATES I HAVE A CUT ON MY FINGER AND NOT A DOG BITE, I DON'T WANT MY DOGS TO BE PUT DOWN. THIS RN EXPLAINED TO PATIENT THAT JUST BECAUSE HE FILLS OUT THIS FORM MEANS DOG WILL BE PUT DOWN. RN EXPLAINED THAT BY LAW WE HAVE TO HAVE ALL DOG BITES FILL OUT FORM. PATIENT STATES HE DOES NOT WANT TO BE SEEN THEN.
== END 2022-01-07 15:40 | disposition left against medical advice (07) ==
LOC: ED 15:42
PROVIDERS: PCP Family Medicine
DX: R69 Illness, unspecified (principal); Z53.21 Procedure and treatment not carried out due to patient leaving prior to being seen by health care provider

== ENCOUNTER 2024-04-12 10:51 | Emergency (ER) | payer MEDICAID, SELFPAY ==
[2024-04-12] VITALS (7 sets, daily range): BP systolic 112–149; BP diastolic 55–89; PULSE 62–89; RESP 14–21; TEMP 36.3–37; O2SAT 94–98; BMI 19.8
--- NOTE | 2024-04-12 11:20 | RAD_ITS ---
STUDY: X-RAY CHEST REASON FOR EXAM: Male, 68 years old. Cough SOB COPD TECHNIQUE: PA and lateral views of the chest. COMPARISON: None. FINDINGS: There is hyperinflation of the lungs consistent with chronic obstructive lung disease (COPD). There is no demonstrated pleural abnormality. Normal size heart. Normal mediastinum and mima. Normal visualized pulmonary arteries. Normal visualized aortic arch and descending thoracic aorta. There is an increased kyphosis of the thoracic spine. Normal visualized ribs, clavicles, and shoulders. There is no demonstrated abnormality of the visualized soft tissue structures of the upper abdomen. RAD/Chest PA and Lateral IMPRESSION: Degenerative changes, as described above. No demonstrated acute cardiopulmonary process. Electronically Signed: Ulises Greenwood MD at 12:44 EDT ,
--- NOTE | 2024-04-12 11:22 | EX.ED.DYSGE1 ---
HPI History of Present Illness Chief Complaint: Complaint Informant: patient and family Narrative Narrative: 68-year-old male has had trouble urinating for the last couple days, he states he is dribbling and having urinary frequency like he cannot completely empty his bladder. It fernandez to urinate as well. Since yesterday or so he admits he has been having some visual hallucinations that he knows are not real. He states he can look away from the TV and close his eyes and he is seeing a video. 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 Also he said he has had some loose diarrhea yesterday. He is having some mild upper abdominal soreness in the epigastrium, he thinks it is from all the coughing he is doing which has been going on for about a week and is coughing up sputum and doing lots of wheezing. He has COPD and smokes. He has been doing his maintenance inhalers. His rescue inhaler is helping a little but partially and temporarily. No chest pains. No fevers or chills. [facility] Medical History Depression Anxiety Smoker COPD (chronic obstructive pulmonary disease) Home Medications ?Medication ?Instructions ?Recorded ?Last Taken ?Type etodolac 300 mg capsule 300 mg PO TIDCM ##30 02/18/14 Unknown Rx prednisone 20 mg tablet 40 mg (2 x 20 mg) PO DAILY #10 04/12/24 Unknown Rx TABLETS sulfamethoxazole 800 1 tab PO BID #10 TABLETS 04/12/24 Unknown Rx mg-trimethoprim 160 mg tablet Allergy/AdvReac Type Severity Reaction Status Date / Time No Known Allergies Allergy Verified 01/07/22 15:08 Surgical History Stented coronary artery Social History Smoking Status: Current every day smoker tobacco type: cigarettes ROS ROS ED Constitutional Constitutional ED: Denies chills or fever(s) Eyes Eyes: Denies change in vision or diplopia ENT ENT ED: Denies rhinorrhea or sore throat Cardiovascular Cardiovascular: Denies chest pain or palpitations Respiratory/Chest Respiratory/Chest: Reports cough, dyspnea and sputum Gastrointestinal Gastrointestinal: Reports abdominal pain and diarrhea; Denies nausea or vomiting Genitourinary Genitourinary ED: Reports burning urination, difficulty urinating and dysuria; Denies hematuria Musculoskeletal Musculoskeletal: Denies back pain or neck pain Integumentary Denies abscess or rash Neurologic Neurologic: Denies headache(s), paresthesias or weakness Psychiatric Psychiatric: Reports as per HPI and hallucinations; Denies suicidal thoughts EXAM Physical Exam Const Vital Signs: 04/12/24 10:30 04/12/24 10:35 04/12/24 11:08 Temperature 97.3 F L 97.3 F L 98.6 F Temperature Source Temporal Temporal Oral Pulse Rate 66 66 62 Respiratory Rate 21 H 21 H 20 H Respiratory Pattern Blood Pressure 143/89 H 143/89 H 149/79 H Blood Pressure Mean 107 107 102 Pulse Ox 96 96 94 Oxygen Delivery Method Room Air Room Air Room Air 04/12/24 11:47 04/12/24 12:00 04/12/24 13:00 Temperature 98.4 F Temperature Source Temporal Pulse Rate 62 89 78 Respiratory Rate 16 16 16 Respiratory Pattern Normal Blood Pressure 145/86 H 134/78 H Blood Pressure Mean 105 96 Pulse Ox 97 98 Oxygen Delivery Method Room Air Room Air Positive well nourished and well developed General Appearance ED: well developed and NAD HEENT Reports moist mucous membranes normocephalic and atraumatic Eyes PERRL and EOMs intact bilaterally Neck full ROM and supple Chest Wall inspection of chest normal and palpation of chest normal Resp normal respiratory effort Effort and Inspection: able to speak in complete sentences and prolonged expiratory phase Auscultation: wheezes expiratory wheezes and throughout Cardio regular rate, regular rhythm and no murmurs GI non-tender and non-distended Auscultation: normoactive bowel sounds Palpation: soft Back/Spine no CVA tenderness General Back: other FROM Extremity normal to inspection General Extremety ED: Negative for edema, pulses abnormal or tenderness General Extremity: Negative for edema or pulses abnormal Neuro oriented x3, CN's II-XII intact bilaterally and no sensory deficits noted Sensorium / Orientation: awake and alert Motor Exam: strength 5/5 throughout Skin no rashes or lesions noted and no wounds MDM MDM MDM Narrative Medical decision making narrative: Urinalysis shows signs of infection, we sent a culture. We did a postvoid residual by bladder scanner at the bedside, and it was only reading 34 mL. Patient states he wants a catheter because he constantly feels the need to urinate and thinks that will resolve it. Based on this information I advised him against the catheter as it just increases his chance for infection and since he does not have acute urinary retention I think it is discomfort that he does not need to have. I am giving him Pyridium, we gave him a gram of IV Rocephin, I am also giving him Solu-Medrol for his COPD exacerbation. 2 view chest x-ray my interpretation is negative for any pneumonia or anything else acute radiology was in agreement. He feels comfortable going home. He is not septic, and he is insightful with regards to the hallucinations and not acting on anything and I do not think he is in any immediate danger because of this. Therefore reasonable to treat as an outpatient with antibiotics. He wants to go home anyway. Daughter is comfortable with that she lives with him. Only putting him on 6-day total course of steroids so as not to make his hallucinations worse since that its potential side effect of them. Lab Data Attestation: I reviewed the patient's lab results. Labs: Laboratory Results - last 24 hr 04/12/24 04/12/24 11:35 11:41 WBC 11.7 H RBC 4.61 Hgb 13.5 Hct 42.4 MCV 92.0 MCH 29.3 MCHC 31.8 L RDW Std Deviation 43.1 RDW Coeff of Fanta 12.8 Plt Count 209 MPV 9.9 Immature Gran % (Auto) 0.400 Neut % (Auto) 83.1 H Lymph % (Auto) 7.2 L [place] % (Auto) 6.3 Eos % (Auto) 2.8 Baso % (Auto) 0.2 Absolute Neuts (auto) 9.7 H Absolute Lymphs (auto) 0.84 Nucleated RBC % 0 Sodium 137 Potassium 3.4 L Chloride 107 Carbon Dioxide 25.0 Anion Gap 5 BUN 14 Creatinine 0.81 Estim Creat Clear Calc 71.79 Est GFR (MDRD) Af Amer 121 Est GFR (MDRD) Non-Af 100 BUN/Creatinine Ratio 17.2 Glucose 93 Calcium 9.0 Total Bilirubin 0.40 AST 14 L ALT 14 L Alkaline Phosphatase 129 H Total Protein 6.6 Albumin 3.0 L Globulin 3.6 Albumin/Globulin Ratio 0.8 L Urine Color Yellow Urine Clarity Cloudy Urine pH 6.0 Ur Specific [place] 1.020 Urine Protein 500 H Urine Glucose (UA) Normal Urine Ketones Negative Urine Occult Blood 250 H Urine Nitrite Positive H Urine Bilirubin 1 H Urine Urobilinogen 4 H Ur Leukocyte Esterase 500 H Urine RBC 5-10 SEEN Urine WBC >100 SEEN Ur Squamous Epith Cells 0 SEEN Urine Bacteria 1+ Urine Mucus 0 SEEN Radiography Diagnostic Testing: Clinical Impression(s) from Imaging Studies Chest X-Ray 04/12/24 11:20 IMPRESSION: Degenerative changes, as described above. No demonstrated acute cardiopulmonary process. Electronically Signed: Ulises Greenwood MD at 12:44 EDT , Discharge Plan Triage Chief Complaint: Complaint ED Provider: Ulises Early Dx/Rx/DC Orders Clinical Impression: Acute cystitis without hematuria, Acute exacerbation of chronic obstructive pulmonary disease (COPD), Hallucination, visual Instructions: ED COPD Flare, ED Bladder Infection, Male (Adult) Prescriptions: New prednisone 20 mg tablet 40 mg PO DAILY Qty: 10 0RF sulfamethoxazole-trimethoprim 800-160 mg tablet 1 tab PO BID Qty: 10 0RF No Action etodolac 300 MG capsule 300 mg PO TIDCM Qty: 30 0RF Rx Instructions: with food Primary Care Provider: Xavier Berger Referrals: Xavier Berger DO [Primary Care Provider] - 3-5 Days Print Language: Maldivian Disposition Disposition: Home, Self Care
[2024-04-12] MEDS: Ipratropium/Albuterol Sulfate 3 ML AMPUL.NEB INHALATION (11:27)
[2024-04-12 11:44] LABS: Absolute Lymphocyte Count 0.84 X10^3/uL (0.83-4.51); Absolute Neutrophil Count 9.7 X10^3/uL (2.0-7.7); Basophil# 0.02 X10^3/uL; Basophil% 0.2 % (0-1); Eosinophil# 0.33 X10^3/uL; Eosinophils% 2.8 % (0-5); Hematocrit 42.4 % (40-54); Hemoglobin 13.5 g/dL (13.0-16.5); Lymphocyte # 0.84 X10^3/ul (0.83-4.51); Lymphocyte % 7.2 % (19-41); Mean Corp Hgb Conc 31.8 g/dL (32-36); Mean Corpuscular Hgb 29.3 pg (27.0-32.0); Mean Platelet Vol. 9.9 fl (6.2-12.0); Monocyte# 0.73 X10^3/uL; Monocyte% 6.3 % (0-10); NRBC Flagged by Analyzer 0 % (0-5); Neutrophil # 9.68 X10^3/uL (2.7-7.7); Neutrophil % 83.1 % (47-70); Platelet Count 209 K/mm3 (150-450); RBC Distribution Width CV 12.8 % (11.6-14.6); RBC Distribution Width SD 43.1 fl (35.1-43.9); Red Blood Count 4.61 M/mm3 (4.6-6.2); White Blood Count 11.7 K/mm3 (4.4-11.0)
[2024-04-12 11:47] LABS: Mucous, Urine 0 SEEN /hpf (<or=2+); Squamous Epithelial Cells - UA 0 SEEN /hpf (0-5)
[2024-04-12] MEDS: Albuterol 2.5 MG/3 ML VIAL.NEB. INHALATION ×2 (11:47)
[2024-04-12 11:50] LABS: Color, Urine Yellow (Yellow); Glucose, Dipstick Normal (Normal); Ketone-Dipstick Negative (Negative); Leukocyte Esterase-Dipstick 500 /ul (Negative); Nitrite-Dipstick Positive (Negative); Occult Blood-Urine 250 /ul (Negative); Protein-Dipstick 500 mg/dl (Negative); Urine Bilirubin Dipstick 1 mg/dL (Negative); Urine Clarity Cloudy (Clear); Urine Urobilinogen 4 mg/dl (Normal)
[2024-04-12 11:53] LABS: Bacteria 1+ /hpf (None Seen); Red Blood Cells-Urine 5-10 SEEN /hpf (0-5); White Blood Cells >100 SEEN /hpf (0-5)
[2024-04-12 12:11] LABS: ALB/GLOB Ratio 0.8 RATIO (0.9-2.4); AST(SGOT) 14 U/L (15-37); Alanine Aminotransfer ALT/SGPT 14 U/L (16-61); Alkaline Phosphatase 129 U/L (45-117); Anion Gap 5 (5-15); BUN 14 mg/dL (7-18); BUN/Creat Ratio 17.2 RATIO (10-20); Chloride 107 mmol/L (98-107); Creatinine, Serum 0.81 mg/dL (0.70-1.30); EST Glomerular Filtration Rate 100 mL/min (>60); Est Glom Filt Rate - Afr Amer 121 mL/min (>60); Estimated Creatinine Clearance 71.79 ml/min; Globulin 3.6 g/dL (2.2-4.2); Glucose 93 mg/dL (74-106); Potassium 3.4 mmol/L (3.5-5.1); Protein, Total 6.6 g/dL (6.4-8.2); Sodium Level 137 mmol/L (136-145)
[2024-04-12] MEDS: Ceftriaxone 1 GM/50 ML BAG IV (12:53)
[2024-04-12] MEDS: MethylPREDNISolone 125 MG/2 ML Vial IV (13:29)
[2024-04-12] MEDS: Phenazopyridine 95 MG Tablet 190 MG PO (13:29)
== END 2024-04-12 13:45 | disposition home or self-care (01) ==
PROVIDERS: Emergency Provider Emergency Medicine; PCP Family Medicine; Visit Provider Emergency Medicine
DX: N30.00 Acute cystitis without hematuria (principal); J44.1 Chronic obstructive pulmonary disease with (acute) exacerbation; F17.210 Nicotine dependence, cigarettes, uncomplicated; R44.1 Visual hallucinations
CPT/HCPCS: 36415; 71046; 80048; 80053; 81001; 85025; 87086; 87088; 87186; 87631; 94640; 96365; 96375; 99283

== ENCOUNTER 2024-04-14 17:14 | Emergency (ER) | payer MEDICAID, SELFPAY ==
[2024-04-14 17:15] VITALS: BP 124/78; PULSE 81; RESP 16; TEMP 36.9; O2SAT 95; BMI 20.1
--- NOTE | 2024-04-14 17:45 | ED.RN ---
dr. bell asked this rn to get security, pt aggressive and cussing towards dr. bell. this rn attempted to speak with pt, pt cussing at this rn states im leaving not coming back to this [facility].
--- NOTE | 2024-04-14 18:00 | EX.ED.DYSGE1 ---
HPI History of Present Illness Chief Complaint: Confusion Informant: patient Narrative Narrative: 68-year-old male presenting to the emergency room via EMS. Patient states he is hallucinating as a urinary tract infection has a cough. The patient states that he was seen in the emergency room 3 days ago (12 April). It was found that he had a urinary tract infection and he had visual hallucinations that he knew he was having. He also reported a cough and has a history of COPD. He was discharged home on Bactrim and prednisone. Patient states that he has now had 2 doses of those medicines as he could not get the prescriptions. Patient states that today he was kicked out of the home he was living in and is [place] most of the [place] park and reports that he is on his way to stay at his sister's house. Patient states that he was depressed because he had a granddaughter of a drug overdose and the pain in his legs from polio as a child make him sad that his parents have . [facility] Medical History Depression Anxiety Smoker COPD (chronic obstructive pulmonary disease) Home Medications ?Medication ?Instructions ?Recorded ?Last Taken ?Type etodolac 300 mg capsule 300 mg PO TIDCM ##30 02/18/14 Unknown Rx prednisone 20 mg tablet 40 mg (2 x 20 mg) PO DAILY #10 04/12/24 Unknown Rx TABLETS sulfamethoxazole 800 1 tab PO BID #10 TABLETS 04/12/24 Unknown Rx mg-trimethoprim 160 mg tablet Allergy/AdvReac Type Severity Reaction Status Date / Time No Known Allergies Allergy Verified 01/07/22 15:08 Surgical History Stented coronary artery Social History Smoking Status: Current every day smoker tobacco type: cigarettes ROS ROS ED Constitutional Constitutional ED: Denies chills or weight loss Eyes Eyes: Denies change in vision or diplopia ENT ENT ED: Denies ear pain, rhinorrhea or sore throat Cardiovascular Cardiovascular: Denies chest pain, orthopnea, palpitations or racing heartbeat Respiratory/Chest Respiratory/Chest: Reports cough and other Details: No change in chronic dyspnea ; Denies dyspnea, dyspnea on exertion, orthopnea or sputum Gastrointestinal Gastrointestinal: Denies abdominal pain, diarrhea, nausea or vomiting Genitourinary Genitourinary ED: Denies dysuria, hematuria or urinary frequency Musculoskeletal Musculoskeletal: Denies arthralgias or myalgias Integumentary Denies abscess or rash Neurologic Neurologic: Denies headache(s) or weakness Psychiatric Psychiatric: Reports other Details: Visual hallucinations which the patient recognizes as hallucinations ; Denies anxiety, depression, suicidal ideation or suicidal thoughts Endocrine Endocrinology: Denies polydipsia, polyphagia or polyuria Allergic/Immunologic Allergic/Immunologic ED: Denies mouth swelling, tongue swelling or urticaria EXAM Physical Exam Const Vital Signs: 04/14/24 17:15 Temperature 98.4 F Temperature Source Temporal Pulse Rate 81 Respiratory Rate 16 Blood Pressure 124/78 H Blood Pressure Mean 93 Pulse Ox 95 Oxygen Delivery Method Room Air Positive well nourished and well developed General Appearance ED: well developed HEENT Reports normocephalic, head/scalp atraumatic and moist mucous membranes Eyes PERRL and EOMs intact bilaterally Neck no lymphadenopathy, supple and no JVD Resp normal respiratory effort and clear to auscultation bilaterally Cardio regular rate, regular rhythm and no murmurs GI normal to inspection, nondistended, normoactive bowel sounds and non-tender Palpation: soft Back/Spine no CVA tenderness and normal ROM Extremity normal to inspection General Extremety ED: Negative for edema General Extremity: Negative for edema Neuro oriented x3 and CN's II-XII intact bilaterally Sensorium / Orientation: alert; Negative for orientation impaired Motor Exam: strength 5/5 throughout Psych Attitude: agitated Mood & Affect: Negative for depressed or tearful Skin no rashes or lesions noted and no wounds MDM MDM MDM Narrative Medical decision making narrative: When asked if he is here for depression he states no. He cannot tell me a specific thing he would like the emergency department do for him. He states he wanted to come here because he does not want to take his medications anymore because he is afraid they are going to make him more depressed. I asked specifically what he would like the emergency department do for him and he throws the pills at me and tells me just to take them. I told him that I was happy to dispose of his medications for him if he wanted me to but he probably should take the antibiotic if he has a urinary tract infection. Patient is alert oriented x 3. He does admit to visual hallucinations but does state that they are not real and that they are not necessarily new. Patient states that he will just leave. Patient does not wish to sign the AMA paperwork History & Record Review Discussion w/independent historian: Patient Discharge Plan Triage Chief Complaint: Confusion ED Provider: Michel Monroe Dx/Rx/DC Orders Clinical Impression: Cystitis, COPD (chronic obstructive pulmonary disease) Prescriptions: No Action etodolac 300 MG capsule 300 mg PO TIDCM Qty: 30 0RF Rx Instructions: with food prednisone 20 mg tablet 40 mg PO DAILY Qty: 10 0RF sulfamethoxazole-trimethoprim 800-160 mg tablet 1 tab PO BID Qty: 10 0RF Primary Care Provider: Xavier Berger Referrals: Xavier Berger DO [Primary Care Provider] - Print Language: Citizen Of [place] Disposition Disposition: Against Medical Advice Discharge Date/Time: 04/14/24 17:50 Capacity Capacity Assessment Tool Patient lacks Decision Making Capacity: unable to understand, reason and deliberate health related choices: No Risk to self and or others?: No Risk of leaving the patient care unit and or hospital?: No
== END 2024-04-14 17:50 | disposition left against medical advice (07) ==
LOC: ED 17:52
PROVIDERS: Emergency Provider Emergency Medicine; PCP Family Medicine; Visit Provider Emergency Medicine
DX: N30.90 Cystitis, unspecified without hematuria (principal); J44.9 Chronic obstructive pulmonary disease, unspecified; F17.210 Nicotine dependence, cigarettes, uncomplicated; R41.0 Disorientation, unspecified; R44.1 Visual hallucinations; R45.1 Restlessness and agitation; F32.A Depression, unspecified; Z53.29 Procedure and treatment not carried out because of patient's decision for other reasons
CPT/HCPCS: 99282

== ENCOUNTER 2024-04-15 06:38 | Emergency (ER) | payer MEDICAID, SELFPAY ==
[2024-04-15 06:40] VITALS: BP 158/72; PULSE 72; RESP 18; TEMP 36.4; O2SAT 95; BMI 18.8
[2024-04-15 06:44] VITALS: BP 158/72; PULSE 72; RESP 18; TEMP 36.4; O2SAT 95
[2024-04-15] MEDS: 0.9% Normal Saline (1000mL) 1,000 ML 1000 ML IV (07:16)
[2024-04-15 07:20] LABS: Bacteria 0 SEEN /hpf (None Seen); Mucous, Urine 0 SEEN /hpf (<or=2+); Squamous Epithelial Cells - UA 0 SEEN /hpf (0-5)
--- NOTE | 2024-04-15 07:22 | RAD_ITS ---
STUDY: X-RAY CHEST REASON FOR EXAM: Male, 68 years old. COPD TECHNIQUE: Single AP portable view of the chest. COMPARISON: Comparison is made with prior study dated 12/13/2023. FINDINGS: There is hyperinflation of the lungs consistent with chronic obstructive lung disease (COPD). I suspect the 2.9 cm x 1.8 cm cystic/solid nodule in the left lung apex. Correlation with CT recommended. There is no demonstrated pleural abnormality. Normal size heart. Normal mediastinum and mima. Normal visualized pulmonary arteries. Normal visualized aortic arch and descending thoracic aorta. There is a dextroscoliosis of the thoracic spine. Normal visualized ribs, clavicles, and shoulders. There is no demonstrated abnormality of the visualized soft tissue structures of the upper abdomen. RAD/Chest 1 View (Portable) IMPRESSION: Questionable 1.8 cm x 2.9 cm partly cystic and solid nodular density in the left lung apex. Correlation with CT recommended. Electronically Signed: Lee Rosario MD at 7:41 EDT ,
[2024-04-15 07:27] LABS: Absolute Lymphocyte Count 0.53 X10^3/uL (0.83-4.51); Absolute Neutrophil Count 7.9 X10^3/uL (2.0-7.7); Basophil# 0.02 X10^3/uL; Basophil% 0.2 % (0-1); Hematocrit 43.2 % (40-54); Hemoglobin 13.9 g/dL (13.0-16.5); Lymphocyte # 0.53 X10^3/ul (0.83-4.51); Mean Corp Hgb Conc 32.2 g/dL (32-36); Mean Corpuscular Hgb 28.7 pg (27.0-32.0); Mean Corpuscular Volume 89.1 fL (80-94); Mean Platelet Vol. 9.4 fl (6.2-12.0); Monocyte# 0.22 X10^3/uL; Monocyte% 2.5 % (0-10); NRBC Flagged by Analyzer 0 % (0-5); Neutrophil # 7.91 X10^3/uL (2.7-7.7); Neutrophil % 90.2 % (47-70); POSITIVE DIFFERENTIAL YES; Platelet Count 321 K/mm3 (150-450); RBC Distribution Width SD 42.4 fl (35.1-43.9); Red Blood Count 4.85 M/mm3 (4.6-6.2); White Blood Count 8.8 K/mm3 (4.4-11.0)
[2024-04-15 07:43] LABS: AST(SGOT) 82 U/L (15-37); Alanine Aminotransfer ALT/SGPT 35 U/L (16-61); Albumin, Serum 3.8 g/dL (3.2-5.0); Alkaline Phosphatase 134 U/L (45-117); Anion Gap 6 (5-15); BUN 27 mg/dL (7-18); Chloride 107 mmol/L (98-107); Creatinine, Serum 1.08 mg/dL (0.70-1.30); EST Glomerular Filtration Rate 72 mL/min (>60); Est Glom Filt Rate - Afr Amer 87 mL/min (>60); Estimated Creatinine Clearance 51.41 ml/min; Globulin 3.7 g/dL (2.2-4.2); Glucose 132 mg/dL (74-106); Potassium 3.8 mmol/L (3.5-5.1); Protein, Total 7.5 g/dL (6.4-8.2); Sodium Level 139 mmol/L (136-145)
[2024-04-15 07:44] VITALS: BP 157/88; PULSE 77; RESP 19; TEMP 36.5; O2SAT 95
[2024-04-15 07:55] LABS: Amphetamine Urine VISTA NEGATIVE (<1000 ng/mL); Barbiturate Urine VISTA NEGATIVE (< 200 ng/mL); Benzodiazepine Urine VISTA NEGATIVE (< 200 ng/mL); Cocaine Urine VISTA NEGATIVE (< 300 ng/mL); Ecstacy Urine VISTA NEGATIVE (< 500 ng/mL); Methadone Urine VISTA NEGATIVE (< 300 ng/mL); PCP Urine VISTA NEGATIVE (< 25 ng/mL); THC Urine VISTA NEGATIVE (< 50 ng/mL); Vista UDS pH Range 5
[2024-04-15 08:02] VITALS: BP 155/78; PULSE 77; RESP 19; TEMP 36.5; O2SAT 94
[2024-04-15 08:14] LABS: Color, Urine Yellow (Yellow); Glucose, Dipstick Normal (Normal); Ketone-Dipstick 15 mg/dl (Negative); Leukocyte Esterase-Dipstick 25 /ul (Negative); Nitrite-Dipstick Negative (Negative); Occult Blood-Urine 10 /ul (Negative); Protein-Dipstick 30 mg/dl (Negative); Specific Gravity, Urine 1.025 (1.002-1.030); Urine Bilirubin Dipstick Negative (Negative); Urine Clarity Clear (Clear); Urine Urobilinogen 1 mg/dl (Normal)
--- NOTE | 2024-04-15 08:20 | EX.ED.DYSGE1 ---
HPI History of Present Illness Chief Complaint: Mental Status Change Narrative Narrative: 68-year-old male past medical history of COPD, signed out AGAINST MEDICAL ADVICE yesterday, presents with his sister because of visual hallucinations and confusion. Sister states that he seems more confused. He states that he has not slept in about 2 days because even when he tries to go to sleep with the lights off, he sees images on the television, like a movies playing. He also feels dehydrated, but denies other symptoms. He states he has not eaten in about 2 days as well. Patient is a smoker. [facility] Medical History Depression Anxiety Smoker COPD (chronic obstructive pulmonary disease) Home Medications ?Medication ?Instructions ?Recorded ?Last Taken ?Type etodolac 300 mg capsule 300 mg PO TIDCM ##30 02/18/14 Unknown Rx prednisone 20 mg tablet 40 mg (2 x 20 mg) PO DAILY #10 04/12/24 Unknown Rx TABLETS sulfamethoxazole 800 1 tab PO BID #10 TABLETS 04/12/24 Unknown Rx mg-trimethoprim 160 mg tablet Allergy/AdvReac Type Severity Reaction Status Date / Time No Known Allergies Allergy Verified 01/07/22 15:08 Surgical History Stented coronary artery Social History Smoking Status: Current every day smoker tobacco type: cigarettes ROS ROS ED ROS Narrative Constitutional: No fever, no chills. Has not eaten in 2 days. Increased confusion. HEENT: No sore throat. No neck pain. No loss of vision. No rhinorrhea. Cardiovascular: No chest pain. No palpitations. No pedal edema. Respiratory: No cough, no shortness of breath. Abdominal: No abdominal pain. No nausea. No vomiting. Genitourinary: No dysuria. No hematuria. Musculoskeletal: No myalgias. No arthralgias. Neurologic: No headaches. No dizziness. No lightheadedness. Skin: No rash. No change in color. Psychiatric: No depression. No anxiety. Visual hallucinations. EXAM Physical Exam Narrative Exam Narrative: Afebrile. Vital signs noted. HEENT: Normocephalic. Atraumatic. PERRL, EOMI. Neck soft and supple. No point tenderness or step off. Cardiovascular: Regular rate and rhythm. No murmurs, rubs, or gallops appreciated. Respiratory: No tachypnea. Lungs clear to auscultation bilaterally. Gastrointestinal: Abdomen soft, nontender, with normoactive bowel sounds. No rebound or guarding. Neurological: Awake. Alert. Nonfocal, nonlateralizing. Skin: No rash. Normal color. No pallor. Musculoskeletal: No pedal edema. Full range of motion extremities. Const Vital Signs: 04/15/24 06:40 04/15/24 06:44 04/15/24 07:44 Temperature 97.6 F L 97.6 F L 97.7 F L Temperature Source Temporal Temporal Temporal Pulse Rate 72 72 77 Respiratory Rate 18 18 19 H Blood Pressure 158/72 H 158/72 H 157/88 H Blood Pressure Mean 100 100 111 Pulse Ox 95 95 95 Oxygen Delivery Method Room Air Room Air Room Air 04/15/24 08:02 04/15/24 09:00 04/15/24 09:00 Temperature 97.7 F L 98 F Temperature Source Temporal Oral Pulse Rate 77 88 88 Respiratory Rate 19 H 18 18 Blood Pressure 155/78 H 155/77 H 155/77 H Blood Pressure Mean 103 103 103 Pulse Ox 94 98 98 Oxygen Delivery Method Room Air Room Air Room Air MDM MDM MDM Narrative Medical decision making narrative: Concern is for dehydration, although the patient has not tachycardic. Additionally, I reviewed his prior ED visits, and he was seen a few days prior to yesterday and diagnosed with COPD, and a UTI. He is reportedly on prednisone. He has had a few doses of it, so he may be having prednisone induced hallucinations as well has confusion. Additionally, it was noted that in his ED visit from yesterday, he reportedly was unable to stay where he was living previously and was on his way to his sister's house who presents with him today. Patient will be bolused IV fluids. Chest x-ray was obtained in 1 view and interpreted by myself independently as no pneumonia, no pneumothorax. I reviewed the radiology report which confirms my independent interpretation, and also comments on combined cystic and nodular density in the left upper lobe. While CT is recommended, I do not feel that he requires an emergent CT scan. I reviewed his laboratory work and he has normal white count of 8.8, hemoglobin normal at 13.9, platelet count normal at 321, sodium is normal at 139 with potassium 3.8, chloride 107, BUN is elevated at 27 with normal creatinine of 1.08 for mild dehydration. He has elevated glucose that is appropriate at 132 with a normal anion gap of 6. In the event that he would require psychiatric evaluation, I did obtain a urine for drugs of abuse which is negative as the patient stated he does not use illicit drugs, and he does not drink alcohol, he has a negative EtOH. In review of his urinalysis, his microanalysis is negative for infection with 0-5 white cells. However, they were told to continue his Bactrim that he had been written for on the ninth. I think they can discontinue the steroid burst which may be adding to his confusion and visual hallucinations. No feel that he requires emergent psychiatric evaluation as his hallucinations are not auditory or intrusive. He was referred to the counseling center and to psychiatry. In comparison to previous laboratories, his urinalysis has improved significantly as he is negative for nitrites as well currently. At this point in time, he will be discharged with his family to follow-up with his primary care provider. Additionally, patient states that he is aware of the pulmonary nodule and that his primary care provider, Dr. Sweeney, has been following this. Disposition is discharged home in stable condition. History & Record Review Discussion w/independent historian: Patient and Family Lab Data Attestation: I reviewed the patient's lab results. Labs: Laboratory Results - last 24 hr 04/15/24 07:15 WBC 8.8 RBC 4.85 Hgb 13.9 Hct 43.2 MCV 89.1 MCH 28.7 MCHC 32.2 RDW Std Deviation 42.4 RDW Coeff of Fanta 13.0 Plt Count 321 MPV 9.4 Immature Gran % (Auto) 1.100 H Neut % (Auto) 90.2 H Lymph % (Auto) 6.0 L [place] % (Auto) 2.5 Eos % (Auto) 0.0 Baso % (Auto) 0.2 Absolute Neuts (auto) 7.9 H Absolute Lymphs (auto) 0.53 L Nucleated RBC % 0 Sodium 139 Potassium 3.8 Chloride 107 Carbon Dioxide 26.0 Anion Gap 6 BUN 27 H Creatinine 1.08 Estim Creat Clear Calc 51.41 Est GFR (MDRD) Af Amer 87 Est GFR (MDRD) Non-Af 72 BUN/Creatinine Ratio 25.0 H Glucose 132 H Calcium 10.0 Total Bilirubin 0.60 AST 82 H ALT 35 Alkaline Phosphatase 134 H Total Protein 7.5 Albumin 3.8 Globulin 3.7 Albumin/Globulin Ratio 1.0 Urine Color Yellow Urine Clarity Clear Urine pH 6.0 Ur Specific [place] 1.025 Urine Protein 30 H Urine Glucose (UA) Normal Urine Ketones 15 H Urine Occult Blood 10 H Urine Nitrite Negative Urine Bilirubin Negative Urine Urobilinogen 1 H Ur Leukocyte Esterase 25 H Urine RBC 0-5 SEEN Urine WBC 0-5 SEEN Ur Squamous Epith Cells 0 SEEN Urine Bacteria 0 SEEN Urine Mucus 0 SEEN Urine Opiates Screen NEGATIVE Urine Methadone Screen NEGATIVE Ur Barbiturates Screen NEGATIVE Ur Phencyclidine Scrn NEGATIVE Ur Amphetamines Screen NEGATIVE MDMA (Ecstasy) Screen NEGATIVE U Benzodiazepines Scrn NEGATIVE Urine Cocaine Screen NEGATIVE U Cannabinoids Screen NEGATIVE Ur Drug Screen Comment Ethyl Alcohol 3.0 Radiography Diagnostic Testing: Clinical Impression(s) from Imaging Studies Chest X-Ray 04/15/24 07:22 IMPRESSION: Questionable 1.8 cm x 2.9 cm partly cystic and solid nodular density in the left lung apex. Correlation with CT recommended. Electronically Signed: Lee Rosario MD at 7:41 EDT , Discharge Plan Triage Chief Complaint: Mental Status Change ED Provider: Polo Agustin Dx/Rx/DC Orders Clinical Impression: Hallucination, visual, Confusion, Pulmonary nodule Instructions: ED ALOC, ED Confusion, ED Pulmonary Nodule, Solitary Prescriptions: No Action etodolac 300 MG capsule 300 mg PO TIDCM Qty: 30 0RF Rx Instructions: with food prednisone 20 mg tablet 40 mg PO DAILY Qty: 10 0RF sulfamethoxazole-trimethoprim 800-160 mg tablet 1 tab PO BID Qty: 10 0RF Primary Care Provider: Xavier Berger Referrals: [facility] [Group of Physicians] - As soon as possible Stephen Dumas DO [Non-Staff] - 3-5 Days if not improving Xavier Berger DO [Primary Care Provider] - Seese,Nathan L, DO [Med Staff - Analog Design Engineer] - As Needed Activity Restrictions/Additional Instructions: Have a pulmonary nodule in your left upper lobe of your lung followed by your primary care provider again. Avoid use of prednisone which may be causing your confusion and hallucinations. Finish the rest of your Bactrim. Print Language: Prydein[place] Disposition Disposition: Home, Self Care
[2024-04-15 08:50] LABS: Red Blood Cells-Urine 0-5 SEEN /hpf (0-5); White Blood Cells 0-5 SEEN /hpf (0-5)
[2024-04-15 09:00] VITALS: BP 155/77; PULSE 88; RESP 18; TEMP 36.6; O2SAT 98
== END 2024-04-15 09:23 | disposition home or self-care (01) ==
PROVIDERS: Emergency Provider Emergency Medicine; PCP Family Medicine; Visit Provider Emergency Medicine
DX: J44.9 Chronic obstructive pulmonary disease, unspecified (principal); E86.0 Dehydration; F17.210 Nicotine dependence, cigarettes, uncomplicated; R73.9 Hyperglycemia, unspecified; R41.0 Disorientation, unspecified; R44.1 Visual hallucinations; R91.1 Solitary pulmonary nodule
CPT/HCPCS: 71045; 80053; 80307; 80320; 81001; 85025; 96360; 96361; 99283; J7030; A4216; G0480

== ENCOUNTER 2024-04-20 08:24 | Emergency (ER) | payer MEDICAID, SELFPAY ==
[2024-04-20 08:29] VITALS: BP 154/109; PULSE 62; RESP 18; TEMP 36.2; O2SAT 98; BMI 19.5
--- NOTE | 2024-04-20 08:56 | EDS_ITS ---
HPI History of Present Illness Chief Complaint: Complaint Informant: patient and family Onset/Context/Timing Onset: Yesterday Narrative Narrative: Patient presents secondary to urinary retention. He states has been unable to void since 10 PM last evening. He was brought in by EMS this morning and Jean catheter was placed prior to my initial evaluation. Patient states he is feeling much improved at this time. He just just finished a course of Bactrim yesterday for UTI. He feels that his urinary symptoms were improved. He denies known history of BPH, however he is on tamsulosin. [facility] Medical History Depression Anxiety Smoker COPD (chronic obstructive pulmonary disease) Home Medications ?Medication ?Instructions ?Recorded ?Last Taken ?Type etodolac 300 mg capsule 300 mg PO TIDCM ##30 02/18/14 Unknown Rx prednisone 20 mg tablet 40 mg (2 x 20 mg) PO DAILY #10 04/12/24 Unknown Rx TABLETS sulfamethoxazole 800 1 tab PO BID #10 TABLETS 04/12/24 Unknown Rx mg-trimethoprim 160 mg tablet cephalexin 500 mg capsule 500 mg PO Q12 #14 CAPSULES 04/20/24 Unknown Rx Allergy/AdvReac Type Severity Reaction Status Date / Time No Known Allergies Allergy Verified 01/07/22 15:08 Surgical History Stented coronary artery Social History Smoking Status: Current every day smoker tobacco type: cigarettes ROS ROS ED Constitutional Constitutional ED: Denies chills or fever(s) Eyes Eyes: Denies discharge from eye(s) ENT ENT ED: Denies discharge from eye(s), rhinorrhea or sore throat Cardiovascular Cardiovascular: Denies chest pain or palpitations Respiratory/Chest Respiratory/Chest: Denies cough or dyspnea Gastrointestinal Gastrointestinal: Reports abdominal pain; Denies diarrhea, nausea or vomiting Genitourinary Genitourinary ED: Reports difficulty urinating Musculoskeletal Musculoskeletal: Denies back pain or extremity pain Integumentary Denies Abrasions or rash Neurologic Neurologic: Denies headache(s) or weakness Psychiatric Psychiatric: Denies anxiety or depression Allergic/Immunologic Allergic/Immunologic ED: Denies lip swelling or urticaria EXAM Physical Exam Const Vital Signs: 04/20/24 08:29 Temperature 97.2 F L Temperature Source Oral Pulse Rate 62 Respiratory Rate 18 Blood Pressure 154/109 H Blood Pressure Mean 124 Pulse Ox 98 Oxygen Delivery Method Room Air Positive well nourished and well developed General Appearance ED: well developed HEENT Reports moist mucous membranes Eyes EOMs intact bilaterally Neck no lymphadenopathy Chest Wall inspection of chest normal and palpation of chest normal Resp normal respiratory effort and clear to auscultation bilaterally Cardio regular rate and regular rhythm GI non-tender Palpation: soft Extremity normal to inspection Neuro oriented x3 and no sensory deficits noted Motor Exam: strength 5/5 throughout Psych mental status grossly normal Skin no rashes or lesions noted MDM MDM MDM Narrative Medical decision making narrative: Jean catheter placed by nursing staff prior to my initial evaluation. He has 1 L of urine output in the bag of the time my exam. Abdomen is soft and nontender at this time. We will recheck a urinalysis to evaluate for continued infection. History & Record Review Discussion w/independent historian: Patient and Family Additional record(s) reviewed:: Prior ED visit and Prior labs Lab Data Attestation: I reviewed the patient's lab results. Labs: Laboratory Results - last 24 hr 04/20/24 08:34 Urine Color Straw Urine Clarity Sl. Cloudy Urine pH 6.5 Ur Specific [place] 1.010 Urine Protein Negative Urine Glucose (UA) Normal Urine Ketones Negative Urine Occult Blood 250 H Urine Nitrite Negative Urine Bilirubin Negative Urine Urobilinogen Normal Ur Leukocyte Esterase 25 H Urine RBC 50-100 SEEN Urine WBC 0-5 SEEN Ur Squamous Epith Cells 0 SEEN Urine Bacteria 1+ Urine Mucus 0 SEEN Treatment and Re-Evaluation :: Urinalysis reveals 50-100 red cells, likely secondary to Jean insertion. 0-5 white cells are noted with 1+ bacteria. Patient's most recent urine culture was reviewed. It grew out E. coli that was pansensitive. Given the patient will have an indwelling Jean catheter I will start him on Keflex. New urine culture has also been sent. Patient referred to Dr. Tee for follow-up. He will be given a leg bag and instructions for his catheter at home. Discharge Plan Triage Chief Complaint: Complaint ED Provider: Shanta Montalvo Dx/Rx/DC Orders Clinical Impression: Urinary retention Instructions: ED Jean Catheter, Care, ED Urinary Retention, Male Prescriptions: New cephalexin 500 mg capsule 500 mg PO Q12 Qty: 14 0RF No Action etodolac 300 MG capsule 300 mg PO TIDCM Qty: 30 0RF Rx Instructions: with food prednisone 20 mg tablet 40 mg PO DAILY Qty: 10 0RF sulfamethoxazole-trimethoprim 800-160 mg tablet 1 tab PO BID Qty: 10 0RF Primary Care Provider: Xavier Berger Referrals: Christian Tee MD [Med Staff - Active Staff] - 3-5 Days Xavier Berger DO [Primary Care Provider] - Print Language: Romanian Disposition Disposition: Home, Self Care
[2024-04-20 09:05] LABS: Mucous, Urine 0 SEEN /hpf (<or=2+); Squamous Epithelial Cells - UA 0 SEEN /hpf (0-5)
[2024-04-20 09:09] LABS: Color, Urine Straw (Yellow); Glucose, Dipstick Normal (Normal); Ketone-Dipstick Negative (Negative); Leukocyte Esterase-Dipstick 25 /ul (Negative); Nitrite-Dipstick Negative (Negative); Occult Blood-Urine 250 /ul (Negative); Protein-Dipstick Negative (Negative); Urine Bilirubin Dipstick Negative (Negative); Urine Clarity Sl. Cloudy (Clear); Urine Urobilinogen Normal (Normal); Urine pH 6.5 (5.0 - 8.0)
[2024-04-20 09:17] LABS: Red Blood Cells-Urine 50-100 SEEN /hpf (0-5)
[2024-04-20 09:18] LABS: Bacteria 1+ /hpf (None Seen); White Blood Cells 0-5 SEEN /hpf (0-5)
[2024-04-20] MEDS: Cephalexin 250 MG Capsule 500 MG PO (09:53)
[2024-04-20 10:04] VITALS: BP 146/73; PULSE 86; RESP 15; TEMP 36.6; O2SAT 96
== END 2024-04-20 10:05 | disposition home or self-care (01) ==
LOC: ED 09:45
PROVIDERS: Emergency Provider Emergency Medicine; PCP Family Medicine; Visit Provider Emergency Medicine
DX: R33.9 Retention of urine, unspecified (principal); J44.9 Chronic obstructive pulmonary disease, unspecified; F17.210 Nicotine dependence, cigarettes, uncomplicated; N39.0 Urinary tract infection, site not specified; B96.20 Unspecified Escherichia coli [E. coli] as the cause of diseases classified elsewhere; Z79.899 Other long term (current) drug therapy
CPT/HCPCS: 51702; 81001; 87086; 99284

== ENCOUNTER 2024-04-22 18:58 | Emergency (ER) | payer MEDICAID, SELFPAY ==
[2024-04-22 18:59] VITALS: PULSE 84; RESP 18; TEMP 36.9; O2SAT 94; BMI 20.3
[2024-04-22 19:03] VITALS: BP 109/77; TEMP 37.4
--- NOTE | 2024-04-22 19:12 | EDS_ITS ---
HPI History of Present Illness Chief Complaint: Complaint Narrative Narrative: 68-year-old male was seen 2 days ago for urinary retention and Jean catheter placed. He states that about an hour prior to arrival, he pulled out his Jean catheter with the balloon still inflated because he did not think that there was a balloon keeping it in place. He thought the catheter was the same caliber all the way through. He removed it because he could not sleep because his Jean leg bag Shifting around. He decided to remove it himself. He now states that he has bleeding from his penis. He did state that he was still able to urinate. [facility] Medical History Depression Anxiety Smoker COPD (chronic obstructive pulmonary disease) Home Medications ?Medication ?Instructions ?Recorded ?Last Taken ?Type etodolac 300 mg capsule 300 mg PO TIDCM ##30 02/18/14 Unknown Rx prednisone 20 mg tablet 40 mg (2 x 20 mg) PO DAILY #10 04/12/24 Unknown Rx TABLETS sulfamethoxazole 800 1 tab PO BID #10 TABLETS 04/12/24 Unknown Rx mg-trimethoprim 160 mg tablet cephalexin 500 mg capsule 500 mg PO Q12 #14 CAPSULES 04/20/24 Unknown Rx Allergy/AdvReac Type Severity Reaction Status Date / Time No Known Allergies Allergy Verified 01/07/22 15:08 Surgical History Stented coronary artery Social History Smoking Status: Current every day smoker tobacco type: cigarettes ROS ROS ED ROS Narrative Focused review of systems reveals complaint of bleeding from penis secondary to traumatic Jean removal. Denies other bleeding diathesis. Denies urinary retention currently. EXAM Physical Exam Narrative Exam Narrative: Afebrile. Vital signs noted. Visual inspection does show blood at meatus of penis. Regular rate and rhythm. Lungs clear to auscultation bilaterally. Abdomen soft nontender with normal active bowel sounds. Const Vital Signs: 04/22/24 18:59 04/22/24 19:03 04/22/24 21:00 Temperature 98.4 F 99.3 F H Temperature Source Temporal Oral Pulse Rate 84 74 Respiratory Rate 18 18 Blood Pressure 109/77 108/80 Blood Pressure Mean 87 89 Pulse Ox 94 95 Oxygen Delivery Method Room Air Room Air MDM MDM MDM Narrative Medical decision making narrative: I reviewed the patient's prior ED record. He was in urinary retention and was given a Jean leg bag. I am unsure as to if he actually was able to urinate afterwards. Given his traumatic Jean removal, Jean catheter will be replaced and his bladder irrigated manually. They were able to place a Jean catheter. His bladder was irrigated to a light pink color. There is no evidence of rebleed at this time after observation in the ED. At this point in time, he was told not to remove the Jean catheter by himself. I feel he has probably more of a tear of the urethra. He will follow- up with his urologist at [facility], and in review of his previous ED note he had been referred to Dr. Tee. I feel he can be discharged safely home with follow-up. Return instructions to the emergency department were reviewed. Patient and are agreeable to the plan. Disposition is discharged home in stable condition. Discharge Plan Triage Chief Complaint: Complaint ED Provider: Polo Agustin Dx/Rx/DC Orders Clinical Impression: Hematuria, Urinary retention, Tear of urethra Instructions: Anatomy of the Male Urinary Tract, ED Jean Catheter, Care, ED Hematuria, ED Urinary Retention, Male Prescriptions: No Action etodolac 300 MG capsule 300 mg PO TIDCM Qty: 30 0RF Rx Instructions: with food cephalexin 500 mg capsule 500 mg PO Q12 Qty: 14 0RF prednisone 20 mg tablet 40 mg PO DAILY Qty: 10 0RF sulfamethoxazole-trimethoprim 800-160 mg tablet 1 tab PO BID Qty: 10 0RF Primary Care Provider: Stephen Dumas Referrals: Stephen Dumas DO [Primary Care Provider] - Activity Restrictions/Additional Instructions: Do not remove Jean catheter by yourself. Follow-up with your urologist at [facility] in 1 week. Return with bright red blood from Jean catheter. Print Language: Romansh Disposition Disposition: Home, Self Care
[2024-04-22] MEDS: Lidocaine Jelly 2% 20 ML Syringe (URO-JET) 1 APPLIC TOPICAL (19:45)
[2024-04-22 21:00] VITALS: BP 108/80; PULSE 74; RESP 18; O2SAT 95
== END 2024-04-22 21:36 | disposition home or self-care (01) ==
PROVIDERS: Emergency Provider Emergency Medicine; PCP Family Medicine; Visit Provider Emergency Medicine
DX: S37.33XA Laceration of urethra, initial encounter (principal); J44.9 Chronic obstructive pulmonary disease, unspecified; R31.9 Hematuria, unspecified; R33.9 Retention of urine, unspecified; F17.210 Nicotine dependence, cigarettes, uncomplicated; W26.8XXA Contact with other sharp object(s), not elsewhere classified, initial encounter
CPT/HCPCS: 51702; 99283

== ENCOUNTER 2024-04-24 08:55 | Emergency (ER) | payer MEDICAID, SELFPAY ==
[2024-04-24 08:56] VITALS: BP 134/84; PULSE 88; RESP 18; TEMP 36.6; O2SAT 95; BMI 19.3
--- NOTE | 2024-04-24 09:04 | ED.VIS.GI ---
HPI HPI - GI History of Present Illness Chief Complaint: Abd Pain Detail of Chief Complaint: Constipation. Informant: patient and spouse/S.O. Abdominal Pain/Flank Pain Onset: Today and Yesterday Context: Gradual Onset Timing: Continuous Quality: Cramping and Dull Location: - (Suprapubic) Current Severity: Mild Maximum Severity: Mild Worsened by: Nothing Relieved by: Nothing Nausea/Vomiting/Emesis GI Symptom: Negative for Nausea or Vomiting Diarrhea/Melena/Hematochezia GI Symptom: Negative for Diarrhea, Melena or Hematochezia Associated Symptoms Associated Symptoms: Negative for Dysuria, Frequency, Hematuria or Urgency Narrative Narrative: 68-year-old male recently had Jean catheter placed for urinary retention. He pulled it out at home and had to have it replaced he had bleeding because it when he pulled it out the balloon was up. He currently has a 22 Egyptian Jean catheter in. It is flowing. He is complaining of lower abdominal discomfort and believes he has been constipated for the last 2 days. Denies any fever. No vomiting. Prior similar symptoms: Yes Recent Illness/Hospitalization: No PFSH PFSH Medical History Depression Anxiety Smoker COPD (chronic obstructive pulmonary disease) Home Medications ?Medication ?Instructions ?Recorded ?Last Taken ?Type etodolac 300 mg capsule 300 mg PO TIDCM ##30 02/18/14 Unknown Rx prednisone 20 mg tablet 40 mg (2 x 20 mg) PO DAILY #10 04/12/24 Unknown Rx TABLETS sulfamethoxazole 800 1 tab PO BID #10 TABLETS 04/12/24 Unknown Rx mg-trimethoprim 160 mg tablet cephalexin 500 mg capsule 500 mg PO Q12 #14 CAPSULES 04/20/24 Unknown Rx Allergy/AdvReac Type Severity Reaction Status Date / Time No Known Allergies Allergy Verified 01/07/22 15:08 Surgical History Stented coronary artery Social History Smoking Status: Current every day smoker tobacco type: cigarettes ROS ROS ED ROS Narrative Constipation. Review of Systems ROS Unobtainable: Denies due to encephalopathy Constitutional Constitutional ED: Denies chills or fever(s) ENT ENT ED: Denies ear pain Cardiovascular Cardiovascular: Denies chest pain Respiratory/Chest Respiratory/Chest: Denies cough or dyspnea Gastrointestinal Gastrointestinal: Reports abdominal pain and constipation; Denies diarrhea, melena, nausea or vomiting Genitourinary Genitourinary ED: Reports hematuria; Denies dysuria Musculoskeletal Musculoskeletal: Denies arthralgias or back pain Integumentary Denies abscess Neurologic Neurologic: Denies headache(s) Psychiatric Psychiatric: Denies anxiety Endocrine Endocrinology: Denies polydipsia Hematologic/Lymphatic Hematologic/Lymphatic: Denies easy bleeding or easy bruising Allergic/Immunologic Allergic/Immunologic ED: Denies mouth swelling, tongue swelling or urticaria EXAM Physical Exam Narrative Exam Narrative: Well-appearing 68-year-old male. Vital signs stable afebrile. H EENT exam unremarkable. Neck nontender. No lymphadenopathy. Lungs coarse breath sounds bilaterally. History of COPD. Heart regular rate and rhythm rate about 85 no murmur. Chest wall and ribs nontender. Abdomen soft, nontender. Nondistended. Normal bowel sounds. No peritoneal signs. No signs of obstruction. No obvious hernia or mass. External exam circumcised male. [address] Nurse irrigated in the saline that was put in came out easily. There is no gross blood or clots. Moving all 4 extremities. Nontender. No edema. Neurologically he is awake and alert with no focal motor deficits. Const Vital Signs: 04/24/24 08:56 Temperature 97.8 F Temperature Source Temporal Pulse Rate 88 Respiratory Rate 18 Blood Pressure 134/84 H Blood Pressure Mean 100 Pulse Ox 95 Positive well nourished and well developed; Negative for obese, cachectic, contractures or unkempt General Appearance ED: well developed and NAD; Negative for unkempt, cachectic, contractures or pallor Nutritional Appearance: Negative for cachectic or obese HEENT Reports moist mucous membranes; Denies dry mucous membranes normocephalic and atraumatic; Negative for trauma or tenderness Mouth ED: No dry mucous membranes Mouth: No dry mucous membranes Eyes PERRL General Eye ED: Negative for pale conjunctiva or scleral icterus Neck no lymphadenopathy, supple and no JVD General: Negative for tenderness Carotids: Negative for other Lymph Lymphatic: Negative for other Resp normal respiratory effort and clear to auscultation bilaterally Resp Narrative: Coarse breath sounds with a history of COPD. Effort and Inspection: Negative for respiratory distress Auscultation: Negative for rales, rhonchi or wheezes Cardio regular rate, regular rhythm, S1 normal heart sound, S2 normal heart sound and no murmurs Rate: Negative for bradycardia or tachycardic Rhythm: Negative for abnormal rhythm GI non-tender, non-distended and no masses Inspection: Negative for abdominal distention Auscultation: normoactive bowel sounds Palpation: soft; Negative for tender, guarding, rigid, hernia, mass, pulsatile mass or rebound tenderness present Back/Spine no CVA tenderness General Back: Negative for CVA tenderness Cervical Spine: Negative for cervical spine tenderness Thoracic Spine / Upper Back: Negative for thoracic spinal tenderness Lumbar Spine / Lower Back: Negative for lumbar spinal tenderness Coccyx: Negative for other Extremity full ROM General Extremety ED: Negative for edema or tenderness General Extremity: Negative for edema Neuro CN's II-XII intact bilaterally and moves all extremities Sensorium / Orientation: alert, oriented to person, oriented to place and oriented to time; Negative for orientation impaired, confused, lethargic or stuporous Motor Exam: strength 5/5 throughout; Negative for general weakness or strength abnormal Psych mental status grossly normal and thought process normal Appearance: Negative for unkempt Attitude: No agitated Mood & Affect: Negative for depressed, anxious or tearful Skin no wounds General Skin Exam: Negative for jaundice or pallor Lesions: no lesions Rashes: no rashes Trauma: Negative for abrasion MDM MDM MDM Narrative Medical decision making narrative: 68-year-old male with Jean catheter in due to urinary retention he is post to follow-up with urology. Plan constipation. His exam is benign. His abdomen is nondistended. There are no peritoneal signs. KUB will be obtained to evaluate for possible constipation. Nurses irrigated his Jean and it is flowing well. There is no gross blood or clots. Catheter seem to flush but patient was having more pain we did a bladder scan it was over 700. Will replace the Jean and see if it drains better. He will also be discharged home with GoLytely for constipation. He has a large amount of stool on his KUB. Our nurse replaced the Jean catheter. Placed a new 22 Egyptian. Very good flow of clear yellow urine. No blood or clots. His pain immediately resolved. I think the last catheter is of the balloon was not completely upper or was obstructed or not working and now his pain is resolved. He will be treated at home with GoLytely for his constipation. History & Record Review Discussion w/independent historian: Family Additional record(s) reviewed:: Prior inpatient record, Prior outpatient record, Prior ED visit and Prior labs Radiography Diagnostic Testing: Clinical Impression(s) from Imaging Studies KUB X-Ray 04/24/24 09:10 IMPRESSION: Large amount of fecal material in the colon. Soft tissue density in the pelvis most likely representing a distended urinary bladder. Electronically Signed: Lee Rosario MD at 9:23 EDT , KUB shows large amount of stool in both the pelvis and colon throughout. Increased bowel gas. No obstruction. Also appears he may have a distended bladder. Interpreted both by myself and the radiologist. Discharge Plan Triage Chief Complaint: Abd Pain ED Provider: Sesar Kraus Dx/Rx/DC Orders Clinical Impression: Acute constipation, Urinary retention Instructions: ED Constipation (Adult) Prescriptions: No Action etodolac 300 MG capsule 300 mg PO TIDCM Qty: 30 0RF Rx Instructions: with food cephalexin 500 mg capsule 500 mg PO Q12 Qty: 14 0RF prednisone 20 mg tablet 40 mg PO DAILY Qty: 10 0RF sulfamethoxazole-trimethoprim 800-160 mg tablet 1 tab PO BID Qty: 10 0RF Primary Care Provider: Stephen Dumas Referrals: Stephen Dumas DO [Primary Care Provider] - As Needed Activity Restrictions/Additional Instructions: Follow-up with Dr. All Tee about your catheter. Your abdominal pain is secondary to the constipation. You are given GoLytely to use for the constipation. Drinking 8 ounce glass every hour until a large bowel movement. Print Language: Tuvaluan Disposition Disposition: Home, Self Care
--- NOTE | 2024-04-24 09:10 | RAD_ITS ---
STUDY: X-RAY - ABDOMEN/PELVIS REASON FOR EXAM: Male, 68 years old. Constipation TECHNIQUE: Single AP view of the abdomen / pelvis. COMPARISON: None. FINDINGS: Normal visualized lung bases. There is an abundance of fecal material throughout the colon. Distended urinary bladder. There are calcified phleboliths in the pelvis. There are diffuse degenerative changes of the visualized lumbar spine. Levoscoliosis. Loss of height of the L3 vertebrae. RAD/Abdomen Single View IMPRESSION: Large amount of fecal material in the colon. Soft tissue density in the pelvis most likely representing a distended urinary bladder. Electronically Signed: Lee Rosario MD at 9:23 EDT ,
[2024-04-24 09:41] VITALS: BP 142/78; PULSE 64; RESP 18; TEMP 36.4; O2SAT 99
[2024-04-24] MEDS: Electrolyte Solution/Peg's 4000 ML 2000 ML PO (09:50)
== END 2024-04-24 09:51 | disposition home or self-care (01) ==
LOC: ED 09:29
PROVIDERS: Emergency Provider Emergency Medicine; PCP Family Medicine; Visit Provider Emergency Medicine
DX: K59.00 Constipation, unspecified (principal); J44.9 Chronic obstructive pulmonary disease, unspecified; F17.210 Nicotine dependence, cigarettes, uncomplicated; R33.9 Retention of urine, unspecified
CPT/HCPCS: 51702; 74018; 99283; A4216

== ENCOUNTER → 2024-12-31 | Outpatient (CLI) | payer MEDICAID, SELFPAY | END | disposition home or self-care (01) | LOC: PSN 10:35 | PROVIDERS: PCP Family Medicine; Referring Provider Internal Medicine Cardiovascular Disease; Visit Provider Internal Medicine Cardiovascular Disease | DX: J43.9 Emphysema, unspecified (principal) | CPT/HCPCS: 94060; 94726; 94729 ==

== ENCOUNTER → 2025-04-19 | Outpatient (CLI) | payer MEDICAID, SELFPAY ==
--- NOTE | 2025-04-19 13:49 | ART_ITS ---
Reason For Study Reason For Study: Peripheral Vascular Disease Procedure A bilateral lower extremity continuous wave Doppler with analog waveform analysis and ankle brachial indexes. Left Segmental Pressures Left brachial= 131mmHg. Left posterior tibial artery = 153mmHg. Left dorsalis pedis artery = 140mmHg. Left digit = 110 mmHg. The left dorsalis pedis waveforms are triphasic. The left posterior tibial artery waveforms are triphasic. Right Segmental Pressures Right brachial= 132mmHg. Right posterior tibial artery = 59mmHg. Right dorsalis pedis artery = 74mmHg. Right digit = 43 mmHg. The right dorsalis pedis waveforms are monophasic. The right posterior tibial artery waveforms are monophasic. Indices The right ankle brachial index by the dorsalis pedis is 0.56. The right ankle brachial index by the posterior tibial artery is 0.45. The right digital-brachial index is 0.33. The left ankle brachial index by the dorsalis pedis is 1.06. The left ankle brachial index by the posterior tibial artery is 1.16. The left digital-brachial index is 0.83. VL/Ankle Brachial Index Interpretation Summary Right MARIBELL 0.56, moderate arterial insufficiency. Doppler/PVR waveforms of the r ight ankle moderately diminished at rest. Left MARIBELL 1.16, normal. TBI and Doppler/PVR waveforms of the left ankle normal a t rest. Ordering Physician: JOSUHA MILAN Referring Physician: JOSHUA MILAN Performed By: BOLIVAR GRANADOS RVT
== END | disposition home or self-care (01) ==
LOC: CVS 13:45
PROVIDERS: PCP Family Medicine; Referring Provider Internal Medicine Cardiovascular Disease; Visit Provider Internal Medicine Cardiovascular Disease
DX: I73.9 Peripheral vascular disease, unspecified (principal)
CPT/HCPCS: 93922